=== PATIENT | female | born 1970 | race Hispanic/Latino ===

== ENCOUNTER 2016-11-22 11:17 | Emergency (ER) | payer MEDICAID ==
[2016-11-22 11:33] VITALS: BP 149/101
--- NOTE | 2016-11-25 19:09 | ED Elopement Review ---
ED Pt Elopement review - Call Back decision Pt Call Back Decision: Pt to F/U with PMD
== END 2016-11-22 12:30 | disposition left against medical advice (07) ==
LOC: ED 11:17
DX: R10.9 Unspecified abdominal pain (principal); Z53.21 Procedure and treatment not carried out due to patient leaving prior to being seen by health care provider

== ENCOUNTER 2017-04-17 14:31 | Emergency (ER) | payer MEDICAID ==
[2017-04-17 16:04] LABS: Anion Gap 21 mmol/L; Blood Urea Nitrogen 6 mg/dL (7-17); Calcium 9.5 mg/dL (8.4-10.2); Carbon Dioxide 28 mmol/L (22-30); Chloride 94.5 mmol/L (98-107); Glucose 107 mg/dL (65-100); Sodium 141 mmol/L (137-145)
[2017-04-17 16:07] LABS: Basophils % (Auto) 0.2 % (0.0-1.8); Hematocrit 51.4 % (30.3-42.9); Hemoglobin 17.3 gm/dl (10.1-14.3); Mean Corpuscular HGB Conc 34 % (30-34); Mean Corpuscular Hemoglobin 33 pg (28-32); Mean Corpuscular Volume 98 fl (79-97); Platelet Count 421 K/mm3 (140-440); Red Blood Count 5.24 M/mm3 (3.65-5.03); Red Cell Distribution Width 12.7 % (13.2-15.2); White Blood Count 15.7 K/mm3 (4.5-11.0)
[2017-04-17 16:10] LABS: Potassium 2.9 mmol/L (3.6-5.0)
[2017-04-17 16:12] LABS: INR 0.95 (0.87-1.13)
[2017-04-17 16:13] LABS: Partial Thromboplastin Time 27.5 Sec. (24.2-36.6)
[2017-04-17] MEDS ORDERED: MORPHINE IV ONE ×3 (16:29→22:56)
[2017-04-17] MEDS ORDERED: ZOFRAN IV ONE (16:29)
[2017-04-17] MEDS ORDERED: NACL 0.9% 1000 ML 1,000 ML IV ONE ×2 (16:29→20:08)
--- NOTE | 2017-04-17 16:34 | Emergency Department Report ---
ED Abdominal Pain HPI - General Chief Complaint: Headache Stated Complaint: HEADACHE Time Seen by Provider: 04/17/17 16:21 Source: patient, EMS Mode of arrival: Stretcher Limitations: No Limitations - History of Present Illness Initial Comments: Patient stated that her symptoms started yesterday with abdominal pain nausea vomiting and watery diarrhea. Started to have headache at that and mother stated that she had a history of brain aneurysm denied any weakness numbness or tingling sensation no fever MD Complaint: abdominal pain -: Last night Location: diffuse Severity: moderate Severity scale (0 -10): 5 Quality: cramping Improves With: vomiting Associated Symptoms: nausea, vomiting, diarrhea - Related Data Home Medications Medication Instructions Recorded Confirmed Last Taken ALPRAZolam [Xanax TAB] 2 mg PO BID 04/17/17 04/17/17 04/17/17 Ondansetron [Zofran TAB] 4 mg PO Q8H PRN 04/17/17 04/17/17 04/17/17 07:00 Oxycodone HCl/Acetaminophen 1 each PO QID 04/17/17 04/17/17 04/16/17 [Percocet 10/325 mg] fentaNYL [Fentanyl] 25 mcg TD Q3D 04/17/17 04/17/17 04/15/17 Previous Rx's Medication Instructions Recorded Last Taken Type Ciprofloxacin HCl [Ciprofloxacin 500 mg PO Q12H #14 tab 04/17/17 Unknown Rx TAB] Ketorolac [Toradol] 10 mg PO Q6H PRN #20 tablet 04/17/17 Unknown Rx Ondansetron [Zofran Odt] 4 mg PO Q4-6H PRN #14 tab.rapdis 04/17/17 Unknown Rx Allergies Allergy/AdvReac Type Severity Reaction Status Date / Time No Known Allergies Allergy Verified 01/19/15 18:47 ED Review of Systems ROS: Stated complaint: HEADACHE Other details as noted in HPI Constitutional: denies: chills, fever Respiratory: denies: cough, shortness of breath Cardiovascular: denies: chest pain, palpitations, syncope Gastrointestinal: abdominal pain, nausea, vomiting, diarrhea. denies: constipation, melena, hematochezia Genitourinary: denies: urgency, dysuria, frequency Skin: denies: rash Neurological: headache. denies: weakness, numbness, paresthesias, confusion, abnormal gait, vertigo ED Past Medical Hx - Past Medical History Additional medical history: Brain Aneurysm 2004 - Social History Smoking Status: Current Every Day Smoker Substance Use Type: None - Medications Home Medications: Home Medications Medication Instructions Recorded Confirmed Last Taken Type ALPRAZolam [Xanax TAB] 2 mg PO BID 04/17/17 04/17/17 04/17/17 History Ciprofloxacin HCl [Ciprofloxacin 500 mg PO Q12H #14 tab 04/17/17 Unknown Rx TAB] Ketorolac [Toradol] 10 mg PO Q6H PRN #20 tablet 04/17/17 Unknown Rx Ondansetron [Zofran Odt] 4 mg PO Q4-6H PRN #14 tab.rapdis 04/17/17 Unknown Rx Ondansetron [Zofran TAB] 4 mg PO Q8H PRN 04/17/17 04/17/17 04/17/17 07:00 History Oxycodone HCl/Acetaminophen 1 each PO QID 04/17/17 04/17/17 04/16/17 History [Percocet 10/325 mg] fentaNYL [Fentanyl] 25 mcg TD Q3D 04/17/17 04/17/17 04/15/17 History ED Physical Exam - General Limitations: No Limitations General appearance: alert, in no apparent distress - Head Head exam: Present: atraumatic, normocephalic, normal inspection - Eye Eye exam: Present: normal appearance, PERRL, EOMI Pupils: Present: normal accommodation - ENT ENT exam: Present: normal exam - Neck Neck exam: Present: normal inspection, full ROM. Absent: tenderness, meningismus, lymphadenopathy, thyromegaly - Respiratory Respiratory exam: Present: normal lung sounds bilaterally. Absent: respiratory distress, wheezes, rales, rhonchi - Cardiovascular Cardiovascular Exam: Present: regular rate, normal rhythm, normal heart sounds - GI/Abdominal GI/Abdominal exam: Present: soft, tenderness. Absent: distended, guarding, rebound, rigid, normal bowel sounds, organomegaly, bruit, pulsatile mass - Back Exam Back exam: Present: normal inspection - Neurological Exam Neurological exam: Present: alert, oriented X3, CN II-XII intact - Skin Skin exam: Present: warm, dry, intact ED Course Vital Signs 04/17/17 04/17/17 04/17/17 14:52 15:17 17:40 Temperature 98.8 F 98.5 F 98.7 F Pulse Rate 90 86 78 Respiratory 17 16 16 Rate Blood Pressure 150/88 158/89 153/92 [Right] O2 Sat by Pulse 98 96 96 Oximetry 04/17/17 04/17/17 04/17/17 18:24 19:14 19:20 Temperature 98.7 F Pulse Rate 66 76 Respiratory 16 18 18 Rate Blood Pressure 169/89 175/98 [Right] O2 Sat by Pulse 100 96 Oximetry - Reevaluation(s) Reevaluation #1: 04/17/17 20:39 The patient stated she is feeling much better no nausea no vomiting headache is gone, inform of a negative CT scan of the brain and abdomen and pelvis ED Medical Decision Making - Lab Data Result diagrams: 04/17/17 15:23 04/17/17 15:23 Critical care attestation.: If time is entered above; I have spent that time in minutes in the direct care of this critically ill patient, excluding procedure time. ED Disposition Clinical Impression: Headache, Abdominal pain, Nausea and vomiting in adult Disposition: DC-01 TO HOME OR SELFCARE Is pt being admited?: No Does the pt Need Aspirin: No Condition: Stable Instructions: Abdominal Pain (ED) Referrals: PRIMARY CARE, [Primary Care Provider] - 3-5 Days
[2017-04-17] MEDS ORDERED: ROCEPHIN/NS 1 GM/50 ML 1 GM/50 ML BAG IV ONE (16:50)
[2017-04-17 17:06] LABS: Alanine Aminotransferase 14 units/L (7-56); Albumin 4.4 g/dL (3.9-5); Albumin/Globulin Ratio 1.4 %; Alkaline Phosphatase 90 units/L (35-129); Total Protein 7.6 g/dL (6.3-8.2)
[2017-04-17 17:09] LABS: Bilirubin,Direct < 0.2 mg/dL (0-0.2); Bilirubin,Indirect 0.7 mg/dL
[2017-04-17 17:44] LABS: Bilirubin,Urine SM (Negative); Blood,Urine SM (Negative); Ketones,Urine 20 mg/dL (Negative); Leukocyte Esterase,Urine NEG (Negative); Mucus,Urine 3+ /HPF; Nitrite,Urine NEG (Negative); Urobilinogen,Urine < 2.0 mg/dL (<2.0)
--- NOTE | 2017-04-17 18:09 | Cat Scan Report ---
FINAL REPORT PROCEDURE: CT HEAD/BRAIN WO CON TECHNIQUE: Computerized tomography of the head was performed without contrast material. HISTORY: Headache COMPARISON: No prior studies are available for comparison. FINDINGS: Skull and scalp: Normal. Paranasal sinuses: Normal. Ventricles and subarachnoid spaces: Normal. Cerebrum: No evidence of hemorrhage, acute infarction or mass . Cerebellum and brainstem: No evidence of hemorrhage, acute infarction or mass. Vasculature: Normal. Comments: None. IMPRESSION: There is no evidence of an acute intracranial process
[2017-04-17] MEDS: KCL 10MEQ/100ML 10 MEQ/100 ML BAG IV SCH ×2 (18:25→20:48)
[2017-04-17] MEDS ORDERED: MORPHINE ONE (18:37)
[2017-04-17] MEDS ORDERED: NACL 0.9% 1000 ML 1,000 ML ONE (20:03)
--- NOTE | 2017-04-17 20:28 | Cat Scan Report ---
FINAL REPORT PROCEDURE: CT ABDOMEN PELVIS W CON TECHNIQUE: Computerized axial tomography of the abdomen and pelvis was performed after the IV injection of iodinated nonionic contrast. HISTORY: abdominal pain COMPARISON: No prior studies are available for comparison. FINDINGS: Visualized lower thorax: No significant abnormality. Liver: There is fatty infiltration of the liver. Spleen: Normal size and attenuation. Gallbladder and biliary system: Normal. Pancreas: Normal. Adrenals: There is a small 8 millimeter area of hypoattenuation in the right adrenal gland, small adenoma is suspected.. Kidneys: Kidneys have a normal size. No hydronephrosis. No renal stones or masses. GI tract: The stomach is normal. The small bowel has a normal caliber. No obstruction, ileus or enteritis. The cecum, appendix and colon are normal.. Lymph nodes and mesentery: Normal. Vasculature: Moderate atherosclerosis of the aorta and branching vessels.. Bladder: Normal. Reproductive organs: No pelvic masses. Peritoneum: No free fluid. Musculoskeletal structures: No significant abnormality. Other: None. IMPRESSION: There is no evidence of an intestinal or urinary tract obstruction. No ileus or enteritis. The appendix is normal. Small 8 millimeter right adrenal adenoma is suspected. Fatty infiltration of the liver.
[2017-04-17] MEDS ORDERED: TORADOL IV ONE (20:47)
[2017-04-17] MEDS ORDERED: REGLAN IV ONE (22:56)
[2017-04-17 23:42] VITALS: BP 163/83
== END 2017-04-17 23:18 | disposition home or self-care (01) ==
LOC: ED 14:31
DX: R10.9 Unspecified abdominal pain (principal); R11.2 Nausea with vomiting, unspecified; R51 Headache; F17.200 Nicotine dependence, unspecified, uncomplicated
CPT/HCPCS: 36415; 70450; 74177; 80048; 80074; 81001; 83690; 84703; 85025; 85610; 85730; 96365; 96366; 96367; 96375; 96376; 99285; J0696; J1885; J2270; J2405; J2765; J3480; J7030; Q9967

== ENCOUNTER 2017-10-13 11:59 | Emergency (ER) | payer MEDICAID ==
[2017-10-13 12:46] LABS: Hematocrit 49.8 % (30.3-42.9); Hemoglobin 16.6 gm/dl (10.1-14.3); Mean Corpuscular HGB Conc 33 % (30-34); Mean Corpuscular Hemoglobin 31 pg (28-32); Mean Corpuscular Volume 93 fl (79-97); Platelet Count 417 K/mm3 (140-440); Red Blood Count 5.37 M/mm3 (3.65-5.03); Red Cell Distribution Width 13.3 % (13.2-15.2)
[2017-10-13 12:58] LABS: Alanine Aminotransferase 6 units/L (7-56); Albumin 4.8 g/dL (3.9-5); BUN/Creatinine Ratio 28; Blood Urea Nitrogen 11 mg/dL (7-17); Calcium 10.3 mg/dL (8.4-10.2); Hemolysis Index 9
[2017-10-13 13:09] LABS: Bilirubin,Urine NEG (Negative); Blood,Urine NEG (Negative); Color,Urine Yellow (Yellow); Mucus,Urine 3+ /HPF; Nitrite,Urine NEG (Negative); Urobilinogen,Urine < 2.0 mg/dL (<2.0)
[2017-10-13 13:10] LABS: HCG Qualitative,Urine Negative (Negative)
[2017-10-13] MEDS ORDERED: NACL 0.9% 1000 ML 1,000 ML IV ONE ×2 (15:29→17:39)
[2017-10-13] MEDS ORDERED: ZOFRAN IV ONE (15:30)
[2017-10-13] MEDS ORDERED: MORPHINE IV ONE ×2 (15:30→16:46)
[2017-10-13 15:39] LABS: Total Cells Counted 200
[2017-10-13 15:40] LABS: Anisocytosis 1+; Band Neutrophils # (Manual) 0.6 K/mm3; Basophils % (Manual) 0 % (0.0-1.8); Eosinophils % (Manual) 0 % (0.0-4.3); Platelet Estimate Consistent w Auto
--- NOTE | 2017-10-13 15:40 | Emergency Department Report ---
Chief Complaint: Back Pain/Injury Stated Complaint: BACK PAIN Time Seen by Provider: 10/13/17 14:10 - HPI History of Present Illness: 47F PMH back pain, pancreatitis presents with complaint of acute onset of nausea vomiting and epigastric pain radiating to the back. Started yesterday. Patient is actively vomiting in in severe pain. Awake alert and oriented 3. - ROS Review of Systems: History of pancreatitis, 2 days of nausea and vomiting with abdominal pain - Exam Vital Signs: Vital Signs 10/13/17 12:12 Temperature 98.5 F Pulse Rate 100 H Respiratory 16 Rate Blood Pressure 137/86 O2 Sat by Pulse 97 Oximetry Physical Exam: Bilateral flank tenderness, epigastric tenderness and periumbilical tenderness MSE screening note: Focused history and physical exam performed. Due to findings the following was ordered: Screening Assessment/Plan/Differential Dx: Abdominal pain, possible pancreatitis 1- This initial assessment/diagnostic orders/clinical plan/ treatment(s) is/are subject to change based on pt's health status, clinical progression and re- assessment by fellow clinical providers in the ED. Further treatment and workup at subsequent clinical provers discretion. Patient/guardians urged not to elope from ED as their condition may be serious if not clinically assessed and managed. 2-markedly leukocytosis, clinical suspicion for possible pancreatitis although lipase is low H&H clinical symptoms and epigastric pain and has a history of recurrent pancreatitis 3-CT abdomen and pelvis with contrast, Zofran when necessary, IV analgesia when necessary, IV fluid 4-discussed with Dr. Collins, I will up triaged patient she could be septic secondary to suspected pancreatitis ED Medical Decision Making - Lab Data Result diagrams: 10/13/17 12:17 10/13/17 12:17 ED Disposition for MSE Condition: Stable Referrals: PRICE FERNANDEZ MD [Primary Care Provider] - 3-5 Days
--- NOTE | 2017-10-13 17:45 | Emergency Department Report ---
ED Abdominal Pain HPI - General Chief Complaint: Back Pain/Injury Stated Complaint: BACK PAIN Time Seen by Provider: 10/13/17 14:10 Source: patient, EMS Mode of arrival: Ambulatory Limitations: No Limitations - History of Present Illness Initial Comments: 47 yo female who comes in today due to abdominal/back pain. She states that it started on yesterday. She describes it as bilateral cva tenderness along with suprapubic tenderness. It's rated as 10/10, constant, aching/throbbing, with associated nausea. Admits to one episode of diarrhea. History of chronic pain. MD Complaint: abdominal pain, flank pain -: days(s) (one ) Location: suprapubic, L flank, R flank Radiation: none Migration to: no migration Severity scale (0 -10): 6 Quality: aching, sharp Consistency: constant Improves With: nothing Worsens With: movement Associated Symptoms: nausea, vomiting, diarrhea Treatments Prior to Arrival: other (zofran/pain meds ) - Related Data LMP (females 10-50): unknown Home Medications Medication Instructions Recorded Confirmed Last Taken ALPRAZolam [Xanax TAB] 2 mg PO TID 04/17/17 07/17/17 07/17/17 07:00 Oxycodone HCl/Acetaminophen 1 each PO QID 04/17/17 07/17/17 07/15/17 [Percocet 10/325 mg] fentaNYL [Fentanyl] 25 mcg TD Q3D 04/17/17 07/17/17 07/14/17 Promethazine [Phenergan SUPPOS] [address] Q6HR PRN 07/17/17 07/17/17 07/17/17 04: 00 Previous Rx's Medication Instructions Recorded Last Taken Type Nicotine [Habitrol] 21 mg TD DAILY #14 day 07/21/17 Unknown Rx Ondansetron [Zofran TAB] 8 mg PO Q8HR PRN #15 day 07/21/17 Unknown Rx Potassium Chloride [K-Dur] 20 meq PO QDAY #30 tablet 07/21/17 Unknown Rx Allergies Allergy/AdvReac Type Severity Reaction Status Date / Time No Known Allergies Allergy Verified 01/19/15 18:47 ED Review of Systems ROS: Stated complaint: BACK PAIN Other details as noted in HPI Constitutional: malaise, weakness Eyes: denies: eye pain, eye discharge, vision change ENT: denies: ear pain, throat pain Respiratory: denies: cough, shortness of breath, wheezing Cardiovascular: denies: chest pain, palpitations Endocrine: no symptoms reported Gastrointestinal: as per HPI, abdominal pain, nausea, vomiting, diarrhea Genitourinary: denies: urgency, dysuria, discharge Musculoskeletal: back pain Skin: other (resolving boil in the genital area ) Neurological: denies: headache, weakness, paresthesias Psychiatric: denies: anxiety, depression Hematological/Lymphatic: denies: easy bleeding, easy bruising ED Past Medical Hx - Past Medical History Previous Medical History?: Yes Additional medical history: Brain Aneurysm 2004,pancreatitis,chronic abd pain, Diverticulosis, Frequent kidney infections - Surgical History Past Surgical History?: No - Social History Smoking Status: Current Every Day Smoker Substance Use Type: Marijuana, Prescribed - Medications Home Medications: Home Medications Medication Instructions Recorded Confirmed Last Taken Type ALPRAZolam [Xanax TAB] 2 mg PO TID 04/17/17 07/17/17 07/17/17 07:00 History Oxycodone HCl/Acetaminophen 1 each PO QID 04/17/17 07/17/17 07/15/17 History [Percocet 10/325 mg] fentaNYL [Fentanyl] 25 mcg TD Q3D 04/17/17 07/17/17 07/14/17 History Promethazine [Phenergan SUPPOS] [address] Q6HR PRN 07/17/17 07/17/17 07/17/17 04: 00 History Nicotine [Habitrol] 21 mg TD DAILY #14 day 07/21/17 Unknown Rx Ondansetron [Zofran TAB] 8 mg PO Q8HR PRN #15 day 07/21/17 Unknown Rx Potassium Chloride [K-Dur] 20 meq PO QDAY #30 tablet 07/21/17 Unknown Rx ED Physical Exam - General Limitations: No Limitations General appearance: anxious - Head Head exam: Present: atraumatic, normocephalic - Eye Eye exam: Present: normal appearance - ENT ENT exam: Present: mucous membranes dry - Neck Neck exam: Present: normal inspection - Respiratory Respiratory exam: Present: normal lung sounds bilaterally. Absent: respiratory distress - Cardiovascular Cardiovascular Exam: Present: regular rate, normal rhythm. Absent: systolic murmur, diastolic murmur, rubs, gallop - GI/Abdominal GI/Abdominal exam: Present: tenderness (suprapubic/bilateral cva tenderness ) - Extremities Exam Extremities exam: Present: normal inspection - Back Exam Back exam: Present: CVA tenderness (R), CVA tenderness (L) - Neurological Exam Neurological exam: Present: alert, oriented X3 - Psychiatric Psychiatric exam: Present: normal affect, normal mood - Skin Skin exam: Present: warm, dry, intact, normal color. Absent: rash ED Course Vital Signs 10/13/17 10/13/17 10/13/17 12:12 16:23 16:53 Temperature 98.5 F Pulse Rate 100 H Respiratory 16 18 18 Rate Blood Pressure 137/86 Blood Pressure [Right] O2 Sat by Pulse 97 Oximetry 10/13/17 10/13/17 10/13/17 17:34 18:04 18:48 Temperature Pulse Rate Respiratory 18 18 18 Rate Blood Pressure Blood Pressure [Right] O2 Sat by Pulse Oximetry 10/13/17 18:58 Temperature 98.9 F Pulse Rate 65 Respiratory 18 Rate Blood Pressure Blood Pressure 180/95 [Right] O2 Sat by Pulse 99 Oximetry ED Medical Decision Making - Lab Data Result diagrams: 10/13/17 12:17 10/13/17 12:17 - Radiology Data Radiology results: report reviewed (CT abdomen/pelvis-colitis, right adrenal gland nodule ) - Medical Decision Making Chronic pain Colitis Abdominal pain Back pain Hypokalemia Hypomagnesemia Nausea/vomiting - Differential Diagnosis chronic pain, colitis, abdominal pain, back pain, hypokalemia, nausea/vomit Critical care attestation.: If time is entered above; I have spent that time in minutes in the direct care of this critically ill patient, excluding procedure time. ED Disposition Clinical Impression: Acute gastroenteritis, Hypokalemia, gastrointestinal losses, Chronic pain, Colitis, Hypomagnesemia Disposition: - TO HOME OR SELFCARE Is pt being admited?: No Does the pt Need Aspirin: No Condition: Stable Instructions: Gastroenteritis (ED), Acute Nausea and Vomiting (ED), Hypokalemia (ED), Hypomagnesemia (ED) Additional Instructions: May restart your medications on discharge. Remember to hydrate until better. Zofran odt prn nausea/vomiting. Referrals: PRICE FERNANDEZ MD [Primary Care Provider] - 3-5 Days Time of Disposition: 20:12
[2017-10-13] MEDS ORDERED: KCL 10MEQ/100ML 10 MEQ/100 ML BAG IV SCH (18:00)
[2017-10-13] MEDS ORDERED: KCL 40 MEQ in NACL 0.9% 500 ML 500 ML IV ONE (18:00)
--- NOTE | 2017-10-13 18:05 | Cat Scan Report ---
FINAL REPORT EXAM: CT ABDOMEN PELVIS W CON HISTORY: epigastric pain TECHNIQUE: Standard enhanced CT of the abdomen and pelvis. Coronal and sagittal reconstruction was also performed. Contrast: 100 mL Omnipaque 300 given IV. PRIORS: CT a/P 07/17/2017 FINDINGS: In the left upper quadrant, there is a short segment of concentric wall thickening in the splenic flexure of the colon with surrounding inflammation in the adjacent fat (axial image 53, coronal image 52). Findings are consistent with an inflammatory process including diverticulitis, colitis, and Crohn's disease. Neoplasm is not excluded. No evidence for localized perforation or abscess is seen. Within the abdomen, the liver again demonstrates focal fatty deposition along the anterior falciform ligament. The spleen, pancreas, gallbladder, left adrenal gland, and kidneys are unremarkable. There is stable 1.8 x 1.5 cm nodule in the right adrenal gland. No evidence for retroperitoneal or pelvic lymphadenopathy is seen. The bowel loops have normal caliber. No fluid collection or free air is seen within the abdomen or pelvis. The appendix is normal. Moderate calcification of the aorta is seen. Within the pelvis, the bladder is unremarkable. The uterus is normal but lies to the left of midline. No evidence for mass or lymphadenopathy is seen in the pelvis. Images through the upper abdomen include the lung bases which are expanded and clear. Bony structures show severe degenerative disc narrowing at L1 through L3 and L5-S1. IMPRESSION: 1. Concentric wall thickening and inflammation involving the splenic flexure of the colon. Differential includes inflammatory process such as diverticulitis, colitis, and Crohn's disease. Neoplasm is also included in the differential given the short segment of involvement. 2. Stable nodule in the right adrenal gland
[2017-10-13 19:00] VITALS: BP 180/95
[2017-10-13] MEDS ORDERED: MAGNESIUM SULFATE IV ONE (19:02)
[2017-10-13] MEDS ORDERED: REGLAN IV ONE (19:26)
[2017-10-13] MEDS ORDERED: MAGNESIUM SULFATE 2GM/50ML 0 GM/0 ML BAG IV ONE (19:38)
[2017-10-13] MEDS ORDERED: MAGNESIUM SULFATE 1 GM in NACL 0.9% 50 ML IV ONE (20:39)
== END 2017-10-13 21:29 | disposition home or self-care (01) ==
LOC: ED 11:59
DX: K52.9 Noninfective gastroenteritis and colitis, unspecified (principal); E87.6 Hypokalemia; G89.29 Other chronic pain; E83.42 Hypomagnesemia; K57.90 Diverticulosis of intestine, part unspecified, without perforation or abscess without bleeding; K85.90 Acute pancreatitis without necrosis or infection, unspecified; F17.200 Nicotine dependence, unspecified, uncomplicated; F12.10 Cannabis abuse, uncomplicated
CPT/HCPCS: 36415; 74177; 80053; 81001; 81025; 82140; 82550; 83690; 83735; 85007; 85025; 87040; 96361; 96365; 96367; 96375; 96376; 99284; J2270; J2405; J2765; J3475; J3480; J7030; J7040; Q9967

== ENCOUNTER 2017-12-27 13:33 | Emergency (ER) | payer MEDICAID | END 2017-12-27 14:30 | disposition left against medical advice (07) | LOC: ED 13:33 | DX: R10.9 Unspecified abdominal pain (principal); Z53.21 Procedure and treatment not carried out due to patient leaving prior to being seen by health care provider ==

== ENCOUNTER 2019-01-02 21:44 | Emergency (ER) | payer MEDICAID ==
--- NOTE | 2019-01-02 22:22 | Emergency Department Report ---
Blank Doc - Documentation Documentation: 48 y o female presents cc of trip and fall at home in her yard x 2 days ago cc of back pain pt has a hx of chronic back pain
[2019-01-02 22:23] VITALS: BP 124/87
[2019-01-02 23:09] LABS: Mean Corpuscular HGB Conc 36 % (30-34); Mean Corpuscular Volume 92 fl (79-97); Platelet Count 376 K/mm3 (140-440); Red Blood Count 4.67 M/mm3 (3.65-5.03); Red Cell Distribution Width 12.9 % (13.2-15.2)
[2019-01-02 23:19] LABS: Hematocrit 42.8 % (30.3-42.9); Hemoglobin 15.4 gm/dl (10.1-14.3)
[2019-01-02 23:24] LABS: BUN/Creatinine Ratio 14; Blood Urea Nitrogen 7 mg/dL (7-17); Calcium 9.7 mg/dL (8.4-10.2); Hemolysis Index 46
--- NOTE | 2019-01-03 00:03 | Cat Scan Report ---
PROCEDURE: CT LUMBAR SPINE WO CON TECHNIQUE: Computerized axial tomography of the lumbar spine was performed from T12 to the sacrum wi thout contrast material. CT DOSE LENGTH PRODUCT: mGycm HISTORY: back pain/injury COMPARISONS: None . FINDINGS: There is mild degree of dextroscoliosis. Vertebral height is normal.. Pre and para vertebral soft tis sues are within normal limits. Right adrenal demonstrates a hypodense nodule measuring 1.1 cm consist ent with adenoma. L1-2: Narrowing of the intervertebral disc spaces is noted with endplate sclerosis and marginal osteo phyte formation. Mild degree of diffuse disc bulge is noted without significant spinal canal or neura l foraminal compromise.. L2-3: Moderate degree diffuse disc bulge is noted without significant spinal canal or neural foramina l compromise. There is mild degree narrowing of the intervertebral disc space.. L3-4: Mild degree right facet arthropathy is noted without significant spinal canal or neural foramin al compromise. L4-5: No significant abnormality . L5-S1: Mild degree diffuse disc bulges noted without significant. There is mild degree right neural f oraminal stenosis secondary to mild degree of facet arthropathy superimposed on diffuse disc bulge.. . Other: An acute fracture is not identified . IMPRESSION: Multilevel lumbar spondylosis as described above No acute fracture Small right adrenal adenoma. This document is electronically signed by Ajay Fortune MD., January 03 2019 12:01:51 AM ET
[2019-01-03] MEDS ORDERED: ZOFRAN ODT PO ONE (00:11)
[2019-01-03] MEDS ORDERED: ZOFRAN ODT ONE (00:13)
[2019-01-03] MEDS ORDERED: REGLAN ONE (00:42)
[2019-01-03] MEDS ORDERED: TORADOL ONE (00:42)
[2019-01-03] MEDS ORDERED: NACL 0.9% 1000 ML 1,000 ML ONE (00:42)
[2019-01-03] MEDS ORDERED: NACL 0.9% 1000 ML 1,000 ML IV ONE (00:48)
[2019-01-03] MEDS ORDERED: REGLAN IV ONE (00:48)
[2019-01-03] MEDS ORDERED: TORADOL IV ONE (00:48)
[2019-01-03] MEDS ORDERED: NORCO 5/325 PO ONE ×2 (01:20→04:36)
[2019-01-03 02:25] LABS: Bilirubin,Urine NEG (Negative); Blood,Urine NEG (Negative); Color,Urine Yellow (Yellow); Mucus,Urine 3+ /HPF; Protein,Urine <15 mg/dL mg/dL (Negative)
[2019-01-03 02:26] LABS: WBC,Urine < 1.0 /HPF (0.0-6.0)
--- NOTE | 2019-01-03 03:37 | Emergency Department Report ---
ED Back Pain/Injury HPI - General Chief Complaint: Back Pain/Injury Stated Complaint: BACK PAIN X'S 2 DAYS Time Seen by Provider: 01/02/19 22:20 Source: patient, EMS Limitations: No Limitations - History of Present Illness Initial Comments: 48-year-old female with past history of chronic back pain, recurrent kidney infections, recurrent pancreatitis presents from department complaining of a back injury that was sustained 2 days ago. While in the ER, she tripped and fell, landing in an unknown fashion causing her low back pain. 2 retrigger. Pain is sharp and throbbing off and on range of motion. palpation and activities. reports some tingling sensation going to her right arm off and on. denies any loss of bowel, bladder, saddle paresthesia, any constipation, diarrh ea or urinary retention. MD Complaint: back pain Similar Symptoms Previously: Yes Place: home Severity: moderate Quality: sharp, dull Consistency: intermittent Worsens With: none Associated Symptoms: denies: confusion, weakness, chest pain, difficulty walking, fever/chills, constipation, headaches, loss of appetite, seizure, shortness of breath - Related Data Home Medications Medication Instructions Recorded Confirmed Last Taken ALPRAZolam [Xanax TAB] 2 mg PO TID 04/17/17 07/17/17 07/17/17 07:00 Oxycodone HCl/Acetaminophen 1 each PO QID 04/17/17 07/17/17 07/15/17 [Percocet 10/325 mg] fentaNYL [Fentanyl] 25 mcg TD Q3D 04/17/17 07/17/17 07/14/17 Promethazine [Phenergan SUPPOS] 25 mg WI Q6HR PRN 07/17/17 07/17/17 07/17/17 04:00 Previous Rx's Medication Instructions Recorded Last Taken Type Nicotine [Habitrol] 21 mg TD DAILY #14 day 07/21/17 Unknown Rx Ondansetron (Nf) [Zofran TAB] 8 mg PO Q8HR PRN #15 day 07/21/17 Unknown Rx Potassium Chloride [K-Dur] 20 meq PO QDAY #30 tablet 07/21/17 Unknown Rx Ketorolac [Toradol] 10 mg PO Q6H PRN #15 tablet 01/03/19 Unknown Rx Methocarbamol [Robaxin-750] 750 mg PO Q8H PRN #20 tablet 01/03/19 Unknown Rx Allergies Allergy/AdvReac Type Severity Reaction Status Date / Time No Known Allergies Allergy Verified 01/19/15 18:47 ED Review of Systems ROS: Stated complaint: BACK PAIN X'S 2 DAYS Other details as noted in HPI Constitutional: denies: chills, fever Eyes: denies: eye pain, eye discharge, vision change ENT: denies: ear pain, throat pain Respiratory: denies: cough, shortness of breath, wheezing Cardiovascular: denies: chest pain, palpitations Endocrine: no symptoms reported Gastrointestinal: denies: abdominal pain, nausea, diarrhea Genitourinary: denies: urgency, dysuria, discharge Musculoskeletal: back pain. denies: joint swelling, arthralgia Skin: denies: rash, lesions Neurological: denies: headache, weakness, paresthesias Psychiatric: denies: anxiety, depression Hematological/Lymphatic: denies: easy bleeding, easy bruising ED Past Medical Hx - Past Medical History Previous Medical History?: Yes Additional medical history: Brain Aneurysm 2004,pancreatitis,chronic abd pain, Diverticulosis, Frequent kidney infections chronic back pain - Surgical History Past Surgical History?: Yes - Social History Smoking Status: Current Every Day Smoker Substance Use Type: Alcohol, Marijuana - Medications Home Medications: Home Medications Medication Instructions Recorded Confirmed Last Taken Type ALPRAZolam [Xanax TAB] 2 mg PO TID 04/17/17 07/17/17 07/17/17 07:00 History Oxycodone HCl/Acetaminophen 1 each PO QID 04/17/17 07/17/17 07/15/17 History [Percocet 10/325 mg] fentaNYL [Fentanyl] 25 mcg TD Q3D 04/17/17 07/17/17 07/14/17 History Promethazine [Phenergan SUPPOS] 25 mg WI Q6HR PRN 07/17/17 07/17/17 07/17/17 04:00 History Nicotine [Habitrol] 21 mg TD DAILY #14 day 07/21/17 Unknown Rx Ondansetron (Nf) [Zofran TAB] 8 mg PO Q8HR PRN #15 day 07/21/17 Unknown Rx Potassium Chloride [K-Dur] 20 meq PO QDAY #30 tablet 07/21/17 Unknown Rx Ketorolac [Toradol] 10 mg PO Q6H PRN #15 tablet 01/03/19 Unknown Rx Methocarbamol [Robaxin-750] 750 mg PO Q8H PRN #20 tablet 01/03/19 Unknown Rx ED Physical Exam - General Limitations: No Limitations General appearance: alert, in no apparent distress - Head Head exam: Present: atraumatic, normocephalic - Eye Eye exam: Present: normal appearance, PERRL, EOMI - ENT ENT exam: Present: mucous membranes moist, other (plan) - Neck Neck exam: Present: normal inspection - Respiratory Respiratory exam: Present: normal lung sounds bilaterally. Absent: respiratory distress - Cardiovascular Cardiovascular Exam: Present: regular rate, normal rhythm. Absent: systolic murmur, diastolic murmur, rubs, gallop - GI/Abdominal GI/Abdominal exam: Present: soft, normal bowel sounds. Absent: tenderness, guarding - Extremities Exam Extremities exam: Present: normal inspection - Back Exam Back exam: Present: normal inspection, tenderness, paraspinal tenderness. Absent: CVA tenderness (R), CVA tenderness (L) - Neurological Exam Neurological exam: Present: alert, oriented X3, CN II-XII intact - Psychiatric Psychiatric exam: Present: normal affect, normal mood - Skin Skin exam: Present: warm, dry, intact, normal color. Absent: rash ED Course Vital Signs 01/02/19 22:20 Temperature 98.3 F Pulse Rate 91 H Respiratory 20 Rate Blood Pressure 124/87 O2 Sat by Pulse 99 Oximetry ED Medical Decision Making - Lab Data Result diagrams: 01/02/19 22:45 01/02/19 22:45 - Radiology Data Radiology results: report reviewed (Its some facet arthropathy and some disc bulging. No effacement.) Critical care attestation.: If time is entered above; I have spent that time in minutes in the direct care of this critically ill patient, excluding procedure time. ED Disposition Clinical Impression: Lumbago, Radicular low back pain Disposition: DC- TO HOME OR SELFCARE Is pt being admited?: No Does the pt Need Aspirin: No Condition: Stable Instructions: Lumbar Radiculopathy (ED), Low Back Strain (ED), Back Pain (ED), Arthralgia (ED) Referrals: ANDRIA WILLIS MD [Primary Care Provider] - 3-5 Days [facility] [Provider Group] - 3-5 Days
[2019-01-03] MEDS ORDERED: NORCO 5/325 ONE (04:36)
== END 2019-01-03 04:40 | disposition home or self-care (01) ==
LOC: ED 21:44
DX: G89.29 Other chronic pain (principal); M54.5 Low back pain; F17.200 Nicotine dependence, unspecified, uncomplicated; F12.90 Cannabis use, unspecified, uncomplicated
CPT/HCPCS: 36415; 72131; 80048; 81001; 85027; 85379; 96374; 96375; 99284; J1885; J2765; J7030; 96361; Q0162

== ENCOUNTER 2019-04-15 16:01 | Emergency (ER) | payer MEDICAID ==
[2019-04-15] MEDS ORDERED: SUBLIMAZE IV ONE (16:59)
[2019-04-15] MEDS ORDERED: ZOFRAN IV ONE (16:59)
[2019-04-15] MEDS ORDERED: BOOSTRIX IM ONE (17:02)
--- NOTE | 2019-04-15 17:05 | Emergency Department Report ---
HPI - General Chief Complaint: Fall Time Seen by Provider: 04/15/19 16:55 - HPI HPI: Room 18 The patient is a 48-year-old female presenting with chief complaint of pain after fall. The patient states she tripped over a football and landed on her right side on concrete. Patient denies loss of consciousness. Patient complains of pain in her lower back, right hip and right ankle. Patient gives her pain a score of 10/10 ED Past Medical Hx - Past Medical History Previous Medical History?: Yes Additional medical history: Brain Aneurysm 2004,pancreatitis,chronic abd pain, Diverticulosis, Frequent kidney infections chronic back pain - Surgical History Past Surgical History?: No - Family History Family history: no significant - Social History Smoking Status: Current Every Day Smoker (1/2 pack per day) Substance Use Type: Marijuana - Medications Home Medications: Home Medications Medication Instructions Recorded Confirmed Last Taken Type ALPRAZolam [Xanax TAB] 2 mg PO TID 04/17/17 07/17/17 07/17/17 07:00 History Oxycodone HCl/Acetaminophen 1 each PO QID 04/17/17 07/17/17 07/15/17 History [Percocet 10/325 mg] fentaNYL [Fentanyl] 25 mcg TD Q3D 04/17/17 07/17/17 07/14/17 History Promethazine [Phenergan SUPPOS] 25 mg ND Q6HR PRN 07/17/17 07/17/17 07/17/17 04:00 History Nicotine [Habitrol] 21 mg TD DAILY #14 day 07/21/17 Unknown Rx Ondansetron (Nf) [Zofran TAB] 8 mg PO Q8HR PRN #15 day 07/21/17 Unknown Rx Potassium Chloride [K-Dur] 20 meq PO QDAY #30 tablet 07/21/17 Unknown Rx Ketorolac [Toradol] 10 mg PO Q6H PRN #15 tablet 01/03/19 Unknown Rx Methocarbamol [Robaxin-750] 750 mg PO Q8H PRN #20 tablet 01/03/19 Unknown Rx ED Review of Systems ROS: Stated complaint: ANKLE/HIP PAIN DUE TO FALL Other details as noted in HPI Constitutional: no symptoms reported Eyes: denies: eye pain ENT: denies: throat pain Respiratory: no symptoms reported Cardiovascular: denies: chest pain Endocrine: no symptoms reported Gastrointestinal: denies: abdominal pain Genitourinary: denies: dysuria Musculoskeletal: back pain, arthralgia, myalgia Skin: other (abrasion right ankle) Neurological: denies: headache Physical Exam - Physical Exam Vital Signs: Vital Signs 04/15/19 16:42 Temperature 97.9 F Pulse Rate 91 H Respiratory 16 Rate Blood Pressure 133/85 O2 Sat by Pulse 99 Oximetry Physical Exam: GENERAL: The patient is well-developed well-nourished female lying on stretcher. Be in moderate discomfort. [] HEENT: Normocephalic. Atraumatic. Extraocular motions are intact. Patient has moist mucous membranes. NECK: Supple. Trachea midline CHEST/LUNGS: Clear to auscultation. There is no respiratory distress noted. HEART/CARDIOVASCULAR: Regular. There is no tachycardia. 2+ right DP ABDOMEN: Abdomen is soft, nontender. Patient has normal bowel sounds. There is no abdominal distention. SKIN: There is an abrasion to the lateral aspect of the right ankle. There is no diaphoresis. NEURO: The patient is awake, alert, and oriented. The patient is cooperative. The patient has no focal neurologic deficits. The patient has normal speech MUSCULOSKELETAL: There is tenderness to palpation of the right hip, right ankle and right foot ED Course Vital Signs 04/15/19 16:42 Temperature 97.9 F Pulse Rate 91 H Respiratory 16 Rate Blood Pressure 133/85 O2 Sat by Pulse 99 Oximetry ED Medical Decision Making - Radiology Data Radiology results: report reviewed (lumbar spine x-ray, right hip x-ray, right ankle x-ray, right foot x-ray), image reviewed (lumbar spine x-ray, right hip x- ray, right ankle x-ray, right foot x-ray) interpreted by me: Lumbar spine x-ray-no acute fracture Right hip x-ray-no acute fracture Right foot x-ray-no acute fracture [facility] [address] [place] [address] XRay Report Signed Patient: DARWIN BOWERS MR#: [id number] : 1970 Acct:[id number] Age/Sex: 48 / F ADM Date: 04/15/19 Loc: ED Attending Dr: Ordering Physician: JEAN DUEÑAS MD Date of Service: 04/15/19 Procedure(s): XR spine lumbosacral 2-3V Accession Number(s): [id number] cc: JEAN DUEÑAS MD Fluoro Time In Minutes: LUMBAR SPINE 3 VIEWS INDICATION / CLINICAL INFORMATION: pain after fall. COMPARISON: None available. FINDINGS: VERTEBRAE: No fracture. Mild scoliosis of lumbar spine with convexity towards right centered at L2. DISC SPACES:Moderate discogenic degenerative disease L1-2 and L5-S1. Mild discogenic degenerative disease L2-3. FACET JOINTS:No significant abnormality. ADDITIONAL FINDINGS: None. IMPRESSION: 1. Discogenic degenerative disease of lumbar spine. Signer Name: Brenden Gao MD Signed: 04/15/2019 6:04 PM Workstation Name: [id number] Transcribed By: TL Dictated By: Brenden Gao MD Electronically Authenticated By: Brenden Gao MD Signed Date/Time: 04/15/191803 DD/ 02 TD/TT: [address] [address] XRay Report Signed Patient: DARWIN BOWERS MR#: [id number] : 1970 Acct:[id number] Age/Sex: 48 / F ADM Date: 04/15/19 Loc: ED Attending Dr: Ordering Physician: JEAN DUEÑAS MD Date of Service: 04/15/19 Procedure(s): XR hip 2-3V RT Accession Number(s): [id number] cc: JEAN DUEÑAS MD Fluoro Time In Minutes: RIGHT HIP 2 VIEWS INDICATION / CLINICAL INFORMATION: Fall onto concrete with right hip pain. COMPARISON: None available. FINDINGS: BONES / JOINT(S): The hip and SI joint spaces are well-maintained. There is no evidence of fracture or dislocation. SOFT TISSUES: No significant abnormality. ADDITIONAL FINDINGS: None. IMPRESSION: No acute abnormality. Signer Name: Clyde Byrd MD Signed: 04/15/2019 5:55 PM Workstation Name: [id number] Transcribed By: RT Dictated By: Clyde Byrd MD Electronically Authenticated By: Clyde Byrd MD Signed Date/Time: 04/15/191754 DD/ 54 TD/TT: [facility] [address] [address] XRay Report Signed Patient: DARWIN BOWERS MR#: [id number] : 1970 Acct:[id number] Age/Sex: 48 / F ADM Date: 04/15/19 Loc: ED Attending Dr: Ordering Physician: JEAN DUEÑAS MD Date of Service: 04/15/19 Procedure(s): XR foot 2V RT Accession Number(s): [id number] cc: JEAN DUEÑAS MD Fluoro Time In Minutes: RIGHT FOOT 4 VIEWS INDICATION / CLINICAL INFORMATION: pain after fall. COMPARISON: None available. FINDINGS: No acute fracture, dislocation or soft tissue swelling is seen within the right foot. Moderate degenerative arthrosis is seen within the first toe IP and MTP joints. There is an old healed fracture deformity involving the fifth metatarsal shaft. Signer Name: Brenden Gao MD Signed: 04/15/2019 6:02 PM Workstation Name: [id number] Transcribed By: TL Dictated By: Brenden Gao MD Electronically Authenticated By: Brenden Gao MD Signed Date/Time: 04/15/191801 DD/ 01 TD/TT: [address] [address] XRay Report Signed Patient: DARWIN BOWERS MR#: [id number] : 1970 Acct:[id number] Age/Sex: 48 / F ADM Date: 04/15/19 Loc: ED Attending Dr: Ordering Physician: JEAN DUEÑAS MD Date of Service: 04/15/19 Procedure(s): XR ankle 2V RT Accession Number(s): [id number] cc: JEAN DUEÑAS MD Fluoro Time In Minutes: RIGHT ANKLE 3 VIEWS INDICATION / CLINICAL INFORMATION: Fall onto concrete with right ankle pain. COMPARISON: None available. FINDINGS: BONES / JOINT(S): No acute fracture or subluxation. No significant arthritis. SOFT TISSUES: No significant abnormality. ADDITIONAL FINDINGS: None. IMPRESSION: No acute abnormality. Signer Name: Clyde Byrd MD Signed: 04/15/2019 5:55 PM Workstation Name: [id number] Transcribed By: RT Dictated By: Clyde Byrd MD Electronically Authenticated By: Clyde Byrd MD Signed Date/Time: 04/15/191754 DD/ 53 TD/TT: - Medical Decision Making Per [place] prescription monitoring the patient had a prescription for Percocet 10/325 #150, fentanyl patch #10 and Xanax 1 mg #90 written 04/11/2019. Subsequently no narcotic pain medication prescription will be given today - Differential Diagnosis hip contusion, hip fracture, ankle sprain, ankle fracture Critical care attestation.: If time is entered above; I have spent that time in minutes in the direct care of this critically ill patient, excluding procedure time. ED Disposition Clinical Impression: Contusion of right hip, Right ankle sprain, Abrasion of right ankle Disposition: DC-01 TO HOME OR SELFCARE Is pt being admited?: No Does the pt Need Aspirin: No Condition: Stable Additional Instructions: Return to the emergency department immediately should you develop worsening symptoms, fever, inability to tolerate food or liquid or any other concerns. Referrals: CLYED MARIA MD [Staff Physician] - 3-5 Days (Dr. Maria is an orthopedic surgeon. Please follow up with him for further evaluation) Time of Disposition: 18:40
--- NOTE | 2019-04-15 17:59 | XRay Report ---
RIGHT ANKLE 3 VIEWS INDICATION / CLINICAL INFORMATION: Fall onto concrete with right ankle pain. COMPARISON: None available. FINDINGS: BONES / JOINT(S): No acute fracture or subluxation. No significant arthritis. SOFT TISSUES: No significant abnormality. ADDITIONAL FINDINGS: None. IMPRESSION: No acute abnormality. Signer Name: Julio Byrd MD Signed: 04/15/2019 5:55 PM Workstation Name: [id number]
--- NOTE | 2019-04-15 18:00 | XRay Report ---
RIGHT HIP 2 VIEWS INDICATION / CLINICAL INFORMATION: Fall onto concrete with right hip pain. COMPARISON: None available. FINDINGS: BONES / JOINT(S): The hip and SI joint spaces are well-maintained. There is no evidence of fracture o r dislocation. SOFT TISSUES: No significant abnormality. ADDITIONAL FINDINGS: None. IMPRESSION: No acute abnormality. Signer Name: Julio Byrd MD Signed: 04/15/2019 5:55 PM Workstation Name: [id number]
--- NOTE | 2019-04-15 18:07 | XRay Report ---
RIGHT FOOT 4 VIEWS INDICATION / CLINICAL INFORMATION: pain after fall. COMPARISON: None available. FINDINGS: No acute fracture, dislocation or soft tissue swelling is seen within the right foot. Moderate degene rative arthrosis is seen within the first toe IP and MTP joints. There is an old healed fracture defo rmity involving the fifth metatarsal shaft. Signer Name: Brenden Gao MD Signed: 04/15/2019 6:02 PM Workstation Name: [id number]
--- NOTE | 2019-04-15 18:08 | XRay Report ---
LUMBAR SPINE 3 VIEWS INDICATION / CLINICAL INFORMATION: pain after fall. COMPARISON: None available. FINDINGS: VERTEBRAE: No fracture. Mild scoliosis of lumbar spine with convexity towards right centered at L2. DISC SPACES:Moderate discogenic degenerative disease L1-2 and L5-S1. Mild discogenic degenerative dis ease L2-3. FACET JOINTS:No significant abnormality. ADDITIONAL FINDINGS: None. IMPRESSION: 1. Discogenic degenerative disease of lumbar spine. Signer Name: Brenden Gao MD Signed: 04/15/2019 6:04 PM Workstation Name: [id number]
[2019-04-15 18:32] VITALS: BP 118/76
== END 2019-04-15 18:58 | disposition home or self-care (01) ==
LOC: ED 16:01
DX: S93.401A Sprain of unspecified ligament of right ankle, initial encounter (principal); S70.01XA Contusion of right hip, initial encounter; M54.5 Low back pain; G89.29 Other chronic pain; F17.210 Nicotine dependence, cigarettes, uncomplicated; F12.90 Cannabis use, unspecified, uncomplicated; Z79.899 Other long term (current) drug therapy; W01.0XXA Fall on same level from slipping, tripping and stumbling without subsequent striking against object, initial encounter; Y93.61 Activity, american tackle football; Y92.89 Other specified places as the place of occurrence of the external cause; Y99.8 Other external cause status
CPT/HCPCS: 72100; 73502; 73600; 73620; 90471; 90715; 96374; 96375; 99283; J2405; J3010

== ENCOUNTER 2019-08-19 06:16 | Emergency (ER) | payer MEDICAID ==
[2019-08-19] MEDS ORDERED: ONDANSETRON 4 MG/2 ML INJ IV ONE (06:47)
[2019-08-19] MEDS ORDERED: HYDROmorphone 1 MG/1 ML INJ IV ONE ×2 (06:47→09:13)
[2019-08-19] MEDS ORDERED: SODIUM CHLORIDE 0.9% 1000 ML 1,000 ML IV ONE (06:47)
--- NOTE | 2019-08-19 06:57 | Emergency Department Report ---
ED General Adult HPI - General Chief complaint: Abdominal Pain Stated complaint: ABDOMINAL PAIN Time Seen by Provider: 08/19/19 06:29 Source: patient, EMS ( EMS documentation not available at time of chart dictation ), RN notes reviewed Mode of arrival: Stretcher Limitations: Physical Limitation - History of Present Illness Initial comments: Primary care physician, Dr. Ar De Jesus This is a 49-year-old female. She has a history of chronic narcotic use, question pancreatitis. She presents to the ER with complaint of nontraumatic sudden diffuse abdominal pain, that started at 1:00 in the morning. She indicates the pain is constant, does not radiate anywhere, increases with palpation and decreases with lying on her side. She makes no complaint of headache, neck pain, chest pain, fever, urinary symptoms. She describes multiple episodes of nausea and vomiting. She's not sure if she is having diarrhea. She makes no complaint of urinary symptoms. She's not sure color her emesis is. She is not certain if she's had pain like this in the past. -: Gradual Location: abdomen Severity scale (0 -10): 10 Quality: other Consistency: other Improves with: other - Related Data Previous Rx's Medication Instructions Recorded Last Taken Type Nicotine [Habitrol] 21 mg TD DAILY #14 day 07/21/17 Unknown Rx Potassium Chloride [K-Dur] 20 meq PO QDAY #30 tablet 07/21/17 Unknown Rx Ketorolac [Toradol] 10 mg PO Q6H PRN #15 tablet 01/03/19 Unknown Rx Ondansetron (Nf) [Zofran TAB] 8 mg PO Q8HR PRN #15 day 08/19/19 Unknown Rx Polyethylene Glycol 3350 [Miralax 17 gm PO Q48HR #30 powd.pack 08/19/19 Unknown Rx 3350] Promethazine [Phenergan SUPPOS] 25 mg OR Q6HR PRN #15 08/19/19 Unknown Rx Allergies Allergy/AdvReac Type Severity Reaction Status Date / Time No Known Allergies Allergy Verified 01/19/15 18:47 ED Review of Systems ROS: Stated complaint: ABDOMINAL PAIN Other details as noted in HPI Constitutional: malaise Eyes: denies: eye discharge ENT: denies: congestion Respiratory: denies: wheezing Cardiovascular: denies: syncope Gastrointestinal: abdominal pain, nausea, vomiting Musculoskeletal: denies: back pain Neurological: weakness Psychiatric: anxiety Hematological/Lymphatic: denies: easy bleeding ED Past Medical Hx - Past Medical History Previous Medical History?: Yes Additional medical history: Brain Aneurysm 2004,pancreatitis,chronic abd pain, Diverticulosis, Frequent kidney infections chronic back pain - Social History Smoking Status: Current Every Day Smoker Substance Use Type: Prescribed - Medications Home Medications: Home Medications Medication Instructions Recorded Confirmed Last Taken Type Nicotine [Habitrol] 21 mg TD DAILY #14 day 07/21/17 Unknown Rx Potassium Chloride [K-Dur] 20 meq PO QDAY #30 tablet 07/21/17 Unknown Rx Ketorolac [Toradol] 10 mg PO Q6H PRN #15 tablet 01/03/19 Unknown Rx Ondansetron (Nf) [Zofran TAB] 8 mg PO Q8HR PRN #15 day 08/19/19 Unknown Rx Polyethylene Glycol 3350 [Miralax 17 gm PO Q48HR #30 powd.pack 08/19/19 Unknown Rx 3350] Promethazine [Phenergan SUPPOS] 25 mg OR Q6HR PRN #15 08/19/19 Unknown Rx ED Physical Exam - General Limitations: Physical Limitation General appearance: alert, in distress - Head Head exam: Present: atraumatic, normocephalic - Eye Eye exam: Present: normal appearance - ENT ENT exam: Present: mucous membranes dry, normal external ear exam - Neck Neck exam: Present: normal inspection, full ROM. Absent: tenderness, meningismus - Respiratory Respiratory exam: Present: normal lung sounds bilaterally. Absent: respiratory distress - Cardiovascular Cardiovascular Exam: Present: regular rate, normal rhythm, normal heart sounds. Absent: bradycardia, tachycardia, irregular rhythm, systolic murmur, diastolic murmur, rubs, gallop - GI/Abdominal GI/Abdominal exam: Present: soft, tenderness. Absent: distended, guarding, rebound, rigid, pulsatile mass - Extremities Exam Extremities exam: Present: normal inspection, full ROM, other (2+ pulses noted in the bilateral upper, lower extremities. There is no long bone tenderness. Musculoskeletal compartments are soft. The pelvis is stable.). Absent: pedal edema, joint swelling, calf tenderness - Back Exam Back exam: Present: normal inspection, full ROM. Absent: tenderness, CVA tenderness (R), CVA tenderness (L), paraspinal tenderness, vertebral tenderness - Neurological Exam Neurological exam: Present: alert, other (there is no facial droop. The tongue is midline. Extraocular movements are intact bilaterally. There is 5/5 strength bilateral upper, lower extremities, and sensation is intact to light touch in 4 extremities.) - Psychiatric Psychiatric exam: Present: anxious - Skin Skin exam: Present: warm, dry, intact, normal color. Absent: rash ED Course Vital Signs 08/19/19 08/19/19 08/19/19 06:25 07:00 07:15 Temperature 97.9 F Pulse Rate 80 Respiratory 20 Rate Blood Pressure 135/83 137/80 153/91 O2 Sat by Pulse 100 100 97 Oximetry 08/19/19 08/19/19 08/19/19 07:30 07:45 08:00 Temperature Pulse Rate Respiratory Rate Blood Pressure 154/90 154/93 145/88 O2 Sat by Pulse 99 99 100 Oximetry 08/19/19 08:23 Temperature 98.4 F Pulse Rate Respiratory Rate Blood Pressure O2 Sat by Pulse Oximetry - Reevaluation(s) Reevaluation #1: 08/19/19 06:52 ga pipeline technician aware Summary Total Prescriptions 39 Total Private Pay 0 Total Prescribers 1 Total Pharmacies 1 Opioids* (excluding buprenorphine) Current Qty 47.67 Current MME/day 180.0 30 Day Avg MME/day 192.0 Buprenorphine* Current Qty 0.0 Current mg/day 0.0 30 Day Avg mg/day 0.0 Prescriptions Filled ID Written Drug QTY Days Prescriber Rx # Pharmacy * Refills Daily Dose Pymt Type [facility] 08/01/2019 1 07/30/2019 OXYCODONE-ACETAMINOPHEN 10-325 120.0 30 [facility] [id number] [facility] ([id number]) 0 60.0 [place] 08/01/2019 1 07/30/2019 FENTANYL 50 MCG/HR PATCH 10.0 30 [facility] [id number] [facility] ([id number]) 0 120.0 [place] 08/01/2019 1 07/04/2019 ALPRAZOLAM 2 MG TABLET 90.0 30 [facility] [id number] [facility] ([id number]) 0 [place] 07/04/2019 1 07/04/2019 OXYCODONE-ACETAMINOPHEN 10-325 120.0 30 [facility] [id number] [facility] ([id number]) 0 60.0 [place] 07/04/2019 1 07/04/2019 FENTANYL 50 MCG/HR PATCH 10.0 30 [facility] [id number] [facility] ([id number]) 0 120.0 [place] 07/04/2019 1 05/09/2019 ALPRAZOLAM 2 MG TABLET 90.0 30 [facility] [id number] [facility] ([id number]) 2 [place] 06/06/2019 1 05/09/2019 OXYCODONE-ACETAMINOPHEN 10-325 150.0 30 [facility] [id number] [facility] ([id number]) 0 75.0 [place] 06/06/2019 1 05/09/2019 FENTANYL 50 MCG/HR PATCH 10.0 30 [facility] [id number] [facility] ([id number]) 0 120.0 [place] 06/06/2019 1 05/09/2019 ALPRAZOLAM 2 MG TABLET 90.0 30 [facility] [id number] [facility] ([id number]) 1 Medicaid [place] 05/09/2019 1 05/09/2019 OXYCODONE-ACETAMINOPHEN 10-325 150.0 30 [facility] [id number] [facility] ([id number]) 0 75.0 MME [place] 05/09/2019 1 05/09/2019 FENTANYL 50 MCG/HR PATCH 10.0 30 [facility] [id number] [facility] ([id number]) 0 120.0 [place]ME [place] 05/09/2019 1 05/09/2019 ALPRAZOLAM 2 MG TABLET 90.0 30 [facility] J[facility]TT [id number] [facility] ([id number]) 0 Medicaid [place] 04/11/2019 1 04/11/2019 OXYCODONE-ACETAMINOPHEN 10-325 150.0 30 [facility]TT [id number] [facility] ([id number]) 0 75.0 MME [place] 04/11/2019 1 04/11/2019 FENTANYL 50 MCG/HR PATCH 10.0 30 [facility] J[facility] [id number] [facility] ([id number]) 0 120.0 [place] 04/11/2019 1 04/11/2019 ALPRAZOLAM 1 MG TABLET 90.0 30 [facility] J[facility]TT [id number] [facility] ([id number]) 0 [place] 03/14/2019 1 03/14/2019 OXYCODONE-ACETAMINOPHEN 10-325 150.0 30 [facility] J[facility]TT [id number] [facility] ([id number]) 0 75.0 [place]ME [place] 03/14/2019 1 03/14/2019 FENTANYL 50 MCG/HR PATCH 10.0 30 [facility]TT [id number] [facility] ([id number]) 0 120.0 MME Medicaid [place] 03/13/2019 1 11/22/2018 ALPRAZOLAM 1 MG TABLET 90.0 30 [facility] [id number] [facility] ([id number]) 2 Medicaid [place] 02/14/2019 1 02/14/2019 OXYCODONE-ACETAMINOPHEN 10-325 150.0 30 [facility]TT [id number] [facility] ([id number]) 0 75.0 [place] 02/14/2019 1 02/14/2019 FENTANYL 50 MCG/HR PATCH 10.0 30 [facility] [id number] [facility] ([id number]) 0 120.0 MME [place] 02/13/2019 1 11/22/2018 ALPRAZOLAM 1 MG TABLET 90.0 30 [facility]TT [id number] [facility] ([id number]) 1 [place] 01/17/2019 1 01/17/2019 OXYCODONE-ACETAMINOPHEN 10-325 150.0 30 [facility] J[facility]TT [id number] [facility] ([id number]) 0 75.0 MME [place] 01/17/2019 1 01/17/2019 FENTANYL 50 MCG/HR PATCH 10.0 30 [facility] J[facility]TT [id number] [facility] ([id number]) 0 120.0 [place] 01/13/2019 1 11/22/2018 ALPRAZOLAM 1 MG TABLET 90.0 30 [facility]TT [id number] [facility] ([id number]) 0 [place] 12/19/2018 1 11/22/2018 OXYCODONE-ACETAMINOPHEN 10-325 150.0 30 [facility] J[facility]TT [id number] [facility] ([id number]) 0 75.0 [place] 12/19/2018 1 11/22/2018 FENTANYL 50 MCG/HR PATCH 10.0 30 [facility] J[facility]TT [id number] [facility] ([id number]) 0 120.0 [place] 12/14/2018 1 09/27/2018 ALPRAZOLAM 1 MG TABLET 90.0 30 [facility] J[facility]TT [id number] [facility] ([id number]) 1 [place] 11/22/2018 1 11/22/2018 OXYCODONE-ACETAMINOPHEN 10-325 150.0 30 [facility] J[facility]TT [id number] [facility] ([id number]) 0 75.0 MME [place] 11/22/2018 1 11/22/2018 FENTANYL 50 MCG/HR PATCH 10.0 30 [facility] [id number] [facility] ([id number]) 0 120.0 [place]ME [place] 11/16/2018 1 09/27/2018 ALPRAZOLAM 1 MG TABLET 90.0 30 [facility] [id number] [facility] ([id number]) 0 [place] 10/25/2018 1 09/27/2018 OXYCODONE-ACETAMINOPHEN 10-325 150.0 30 [facility] J[facility]TT [id number] [facility] ([id number]) 0 75.0 [place]ME [place] 10/25/2018 1 09/27/2018 FENTANYL 50 MCG/HR PATCH 10.0 30 [facility] J[facility]TT [id number] [facility] ([id number]) 0 120.0 [place] 10/19/2018 1 07/17/2018 ALPRAZOLAM 1 MG TABLET 90.0 30 [facility] J[facility]TT [id number] [facility] ([id number]) 2 Medicaid Reevaluation #2: 08/19/19 07:00 Differential diagnosis, including not limited to: Ischemic gut, obstruction, constipation, colitis, diverticulitis, pancreatitis, urinary tract infection, cyclic vomiting syndrome, narcotic bowel syndrome Assessment and plan: 49-year-old female with diffuse abdominal pain, who is otherwise afebrile with reassuring vital signs, has equal pulses in upper and lower extremities, on chronic narcotic therapy. 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 We will check screening laboratory studies, EKG, urinalysis, CT angiogram abdomen pelvis. Reevaluation #3: 08/19/19 07:40 Patient is now sleeping in her stretcher. No active vomiting. Lactic acid within normal limits. This is unlikely to be an emergent surgical condition. Reevaluation #4: 08/19/19 09:15 Patient now complaining of abdominal pain again. She would not clinic CAT scan until additional pain medication was ordered. We have ordered additional hydromorphone for pain control. Reevaluation #5: 08/19/19 11:21 No active vomiting at this time. CT scan shows no emergent condition. Constipation suggested, incidental nonemergent peripheral artery disease noted. 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 The patient will need to follow-up with her outpatient primary care doctor to for narcotic de-escalation therapy. She can follow-up with an outpatient primary care doctor or vascular surgeon for incidental nonemergent peripheral artery disease. ED Medical Decision Making - Lab Data Result diagrams: 08/19/19 06:46 08/19/19 06:46 Vital Signs 08/19/19 06:25 Temperature 97.9 F Pulse Rate 80 Respiratory 20 Rate Blood Pressure 135/83 O2 Sat by Pulse 100 Oximetry - EKG Data -: EKG Interpreted by Pa EKG shows normal: sinus rhythm Rate: normal - EKG Data 08/19/19 07:11 The EKG has some motion artifact. It shows a sinus rhythm, 84 bpm, normal axis, the QTC is 477 ms, there is left ventricular hypertrophy, there is motion artifact. There is poor R-wave progression. The EKG appears to be unchanged from prior EKG from 08/22/2018. The EKG is not consistent with a STEMI - Radiology Data Radiology results: pending, report reviewed, image reviewed CTA ABDOMEN AND PELVIS HISTORY: Diffuse abdominal pain out of proportion to exam COMPARISON: CT abdomen pelvis without contrast dated 08/22/2018 TECHNIQUE: Noncontrast CT abdomen obtained. Routine postcontrast CT angiography of the abdomen and pelvis performed. Multiplanar/MIP/3D reformats were post- processed. All CT scans at this location are performed using CT dose reduction for ALARA by means of automated exposure control. CONTRAST: 100 ml of Omnipaque 350 FINDINGS: CTA ABDOMEN: Abdominal Aorta: Mild partially calcified plaques are identified distally. No stenosis, aneurysm or dissection. Celiac Artery: No significant abnormality. Superior Mesenteric Artery: No significant abnormality. Renal Arteries: Right: No significant abnormality. Le Right: No significant abnormality. Left: No significant abnormality. Inferior Mesenteric Artery: No significant abnormality. CTA PELVIS: RIGHT: Common Iliac Artery: Moderate calcified plaques with 50-60% stenosis. Internal Iliac Artery: Mild calcified plaques but no hemodynamically significant stenosis. External Iliac Artery: No significant abnormality. LEFT: Common Iliac Artery: Moderate calcific plaques with 50-60% stenosis distally. Internal Iliac Artery: Mild calcified plaques but no hemodynamically significant stenosis. External Iliac Artery: No significant abnormality. NONTARGET STRUCTURES: GI:The liver, biliary system, pancreas and bowel loops are unremarkable. Normal appendix. There is mild fecal retention in the distal colon and superior rectum. :The kidneys, renal collecting systems and bladder are unremarkable. Bilateral ovarian cysts are suspected measuring up to 2 cm. The uterus is unremarkable. Lymphatics:No significant abnormality. Osseous Structures: Mild thoracolumbar spondylosis. No fracture or suspicious bony lesion. Additional Findings: None IMPRESSION: Moderate atherosclerotic disease is identified in both common iliac arteries with stenosis measuring up to 50-60% bilaterally. The aorta, mesenteric arteries and renal arteries are widely patent. Bilateral ovarian cysts are suspected. Mild fecal retention. Signer Name: Neymar Finch Jr, MD Signed: 08/19/2019 9:31 AM Workstation Name: [id number] Critical care attestation.: If time is entered above; I have spent that time in minutes in the direct care of this critically ill patient, excluding procedure time. ED Disposition Clinical Impression: Narcotic dependence, Abdominal pain Disposition: DC-01 TO HOME OR SELFCARE Is pt being admited?: No Does the pt Need Aspirin: No Condition: Good Additional Instructions: Patient's symptoms likely coming from chronic narcotic therapy. Patient most likely has narcotic/opioid-induced abdominal pain, typically described as narcotic bowel syndrome, and probable opioid-induced constipation. Recommend consumption of 4-6 cups of water per day, consumption of plenty of fiber, vegetables and lean protein. Recommend following up with your primary care doctor, Dr. De Jesus, and considering land for narcotic de-escalation therapy. Long-term use of narcotics may cause dependence, tolerance, abdominal pain, and constipation. Do not take metformin medication for the next 2 days, if patient takes this medication. Take the nausea medication as needed, patient may take [id number] Tylenol or ibuprofen as needed for pain, take the Phenergan suppository as needed for intractable nausea and vomiting, and take the MiraLAX medication as directed. Also recommend taking a daily baby aspirin, 81 mg, which may be purchased [id number]. Return to the emergency room right away with new, worsened or different symptoms, or symptoms not present on the initial emergency room evaluation. CT scan abdomen pelvis showed nonspecific plaques in her peripheral arteries, this can be followed up by an outpatient primary care doctor or vascular surgeon within the next month. Local vascular surgery group includes [facility] vascular. Referrals: AR DE JESUS JR, MD [Staff Physician] - 3-5 Days [facility] [Provider Group] - as needed
[2019-08-19 07:11] LABS: Basophils # (Auto) 0.1 K/mm3 (0.0-0.1); Eosinophils % (Auto) 0.1 % (0.0-4.3); Hematocrit 39.8 % (30.3-42.9); Hemoglobin 13.4 gm/dl (10.1-14.3); Lymphocytes # (Auto) 1.6 K/mm3 (1.2-5.4); Lymphocytes % (Auto) 20.6 % (13.4-35.0); Mean Corpuscular HGB Conc 34 % (30-34); Mean Corpuscular Volume 92 fl (79-97); Monocytes # (Auto) 0.4 K/mm3 (0.0-0.8); Monocytes % (Auto) 4.6 % (0.0-7.3); Platelet Count 396 K/mm3 (140-440); Red Blood Count 4.35 M/mm3 (3.65-5.03); Red Cell Distribution Width 12.9 % (13.2-15.2)
[2019-08-19 08:38] LABS: Alanine Aminotransferase 10 units/L (7-56); Albumin 4.7 g/dL (3.9-5); BUN/Creatinine Ratio 15; Blood Urea Nitrogen 9 mg/dL (7-17); Calcium 9.7 mg/dL (8.4-10.2); Hemolysis Index 5
[2019-08-19 08:43] LABS: Bilirubin,Urine NEG (Negative); Blood,Urine NEG (Negative); Color,Urine Yellow (Yellow); Mucus,Urine FEW /HPF; Protein,Urine <15 mg/dL mg/dL (Negative)
[2019-08-19 09:02] LABS: Benzodiazepines Screen,Urine PRESUMPTIVE NEGATIVE; Methadone Screen,Urine PRESUMPTIVE NEGATIVE; Opiate Screen,Urine PRESUMPTIVE NEGATIVE
[2019-08-19 09:16] LABS: Amphetamine Screen,Urine PRESUMPTIVE POSITIVE; Cannabinoid Screen,Urine PRESUMPTIVE POSITIVE; Cocaine Screen,Urine PRESUMPTIVE POSITIVE
--- NOTE | 2019-08-19 10:35 | Cat Scan Report ---
CTA ABDOMEN AND PELVIS HISTORY: Diffuse abdominal pain out of proportion to exam COMPARISON: CT abdomen pelvis without contrast dated 08/22/2018 TECHNIQUE: Noncontrast CT abdomen obtained. Routine postcontrast CT angiography of the abdomen and p anay performed. Multiplanar/MIP/3D reformats were post-processed. All CT scans at this location are performed using CT dose reduction for ALARA by means of automated exposure control. CONTRAST: 100 ml of Omnipaque 350 FINDINGS: CTA ABDOMEN: Abdominal Aorta: Mild partially calcified plaques are identified distally. No stenosis, aneurysm or d issection. Celiac Artery: No significant abnormality. Superior Mesenteric Artery: No significant abnormality. Renal Arteries: Right: No significant abnormality. Left: No significant abnormality. Inferior Mesenteric Artery: No significant abnormality. CTA PELVIS: RIGHT: Common Iliac Artery: Moderate calcified plaques with 50-60% stenosis. Internal Iliac Artery: Mild calcified plaques but no hemodynamically significant stenosis. External Iliac Artery: No significant abnormality. LEFT: Common Iliac Artery: Moderate calcific plaques with 50-60% stenosis distally. Internal Iliac Artery: Mild calcified plaques but no hemodynamically significant stenosis. External Iliac Artery: No significant abnormality. NONTARGET STRUCTURES: GI:The liver, biliary system, pancreas and bowel loops are unremarkable. Normal appendix. There is m ild fecal retention in the distal colon and superior rectum. :The kidneys, renal collecting systems and bladder are unremarkable. Bilateral ovarian cysts are s uspected measuring up to 2 cm. The uterus is unremarkable. Lymphatics:No significant abnormality. Osseous Structures: Mild thoracolumbar spondylosis. No fracture or suspicious bony lesion. Additional Findings: None IMPRESSION: Moderate atherosclerotic disease is identified in both common iliac arteries with stenosis measuring up to 50-60% bilaterally. The aorta, mesenteric arteries and renal arteries are widely patent. Bilateral ovarian cysts are suspected. Mild fecal retention. Signer Name: Neymar Finch Jr, MD Signed: 08/19/2019 10:31 AM Workstation Name: [id number]
[2019-08-19 11:38] VITALS: BP 161/84
== END 2019-08-19 11:38 | disposition home or self-care (01) ==
LOC: ED 06:16
DX: F11.20 Opioid dependence, uncomplicated (principal); R10.9 Unspecified abdominal pain; K57.92 Diverticulitis of intestine, part unspecified, without perforation or abscess without bleeding; F17.200 Nicotine dependence, unspecified, uncomplicated; Z79.899 Other long term (current) drug therapy
CPT/HCPCS: 36415; 74174; 80053; 80307; 81001; 82140; 82550; 83690; 83735; 85025; 93005; 93010; 96361; 96374; 96375; 96376; 99285; J1170; J2405; J7030; Q9967

== ENCOUNTER 2019-08-19 19:16 | Emergency (ER) | payer MEDICAID ==
[2019-08-19 19:27] VITALS: BP 143/90
--- NOTE | 2019-08-19 19:50 | Event Note ---
ED Screening Note Date of service: 08/19/19 Time: 19:49 ED Screening Note: This is a 49 y.o. F. that presents to the ER with diffuse abdominal pain and vomiting. Patient discharged this morning with similar symptoms. No followup This initial assessment/diagnostic orders/clinical plan/treatment(s) is/are subject to change based on patients health status, clinical progression and re- assessment by fellow clinical providers in the ED. Further treatment and workup at subsequent clinical providers discretion. Patient/guardian urged not to elope from the ED as their condition may be serious if not clinically assessed and managed. Initial orders include: Labs
[2019-08-19 20:32] LABS: Basophils # (Auto) 0.1 K/mm3 (0.0-0.1); Basophils % (Auto) 0.7 % (0.0-1.8); Hematocrit 41.3 % (30.3-42.9); Hemoglobin 13.9 gm/dl (10.1-14.3); Lymphocytes # (Auto) 1.5 K/mm3 (1.2-5.4); Lymphocytes % (Auto) 14.7 % (13.4-35.0); Mean Corpuscular HGB Conc 34 % (30-34); Mean Corpuscular Volume 91 fl (79-97); Monocytes # (Auto) 0.9 K/mm3 (0.0-0.8); Monocytes % (Auto) 9.1 % (0.0-7.3); Platelet Count 395 K/mm3 (140-440); Red Blood Count 4.53 M/mm3 (3.65-5.03); Red Cell Distribution Width 12.9 % (13.2-15.2)
[2019-08-19 20:53] LABS: Alanine Aminotransferase 10 units/L (7-56); Albumin 4.8 g/dL (3.9-5); BUN/Creatinine Ratio 18; Blood Urea Nitrogen 9 mg/dL (7-17); Hemolysis Index 19
[2019-08-19] MEDS ORDERED: ONDANSETRON 4 MG/2 ML INJ IV ONE (21:13)
[2019-08-19] MEDS ORDERED: SODIUM CHLORIDE 0.9% 1000 ML 1,000 ML IV ONE (21:13)
[2019-08-19] MEDS ORDERED: HYDROmorphone 1 MG/1 ML INJ IV ONE (21:13)
--- NOTE | 2019-08-19 21:19 | Emergency Department Report ---
ED Abdominal Pain HPI - General Chief Complaint: Abdominal Pain Stated Complaint: ABD PAIN Time Seen by Provider: 08/19/19 21:03 Source: patient Mode of arrival: Ambulatory Limitations: No Limitations - History of Present Illness Initial Comments: 49-year-old female with a past medical history of pancreatitis, chronic pain, and diverticulosis as the hospital complaining of continued abdominal pain. Symptoms started at 1 AM. Patient was seen here earlier and discharged after labs and cta abd/pelvis . Patient takes narcotics chronically. As per [place] prescription monitoring site, on August 01 she filled a 30 day supply of Percocet 10, fentanyl patch 50 g, and Ativan 2 mg. She ran out of her fentanyl patch several days ago because she took more than was prescribed. She states she only has a couple of Percocet tabs remaining. Patient informed of her positive UDS earlier for amphetamines, cocaine, and marijuana. Patient admits to using amphetamines after running out of her fentanyl patch. He states that earlier her bd pain was in the lower abdomen. Now it has moved to her right flank. She continues to have nausea vomiting despite Phenergan suppository and Zofran. She has an appointment for refills of her narcotic medications in 2 days - Related Data Previous Rx's Medication Instructions Recorded Last Taken Type Nicotine [Habitrol] 21 mg TD DAILY #14 day 07/21/17 Unknown Rx Potassium Chloride [K-Dur] 20 meq PO QDAY #30 tablet 07/21/17 Unknown Rx Ketorolac [Toradol] 10 mg PO Q6H PRN #15 tablet 01/03/19 Unknown Rx Ondansetron (Nf) [Zofran TAB] 8 mg PO Q8HR PRN #15 day 08/19/19 Unknown Rx Polyethylene Glycol 3350 [Miralax 17 gm PO Q48HR #30 powd.pack 08/19/19 Unknown Rx 3350] Promethazine [Phenergan SUPPOS] 25 mg ND Q6HR PRN #15 08/19/19 Unknown Rx Allergies Allergy/AdvReac Type Severity Reaction Status Date / Time No Known Allergies Allergy Verified 01/19/15 18:47 ED Review of Systems ROS: Stated complaint: ABD PAIN Other details as noted in HPI Comment: All other systems reviewed and negative ED Past Medical Hx - Past Medical History Previous Medical History?: Yes Additional medical history: Brain Aneurysm 2003,pancreatitis,chronic abd pain, Diverticulosis, Frequent kidney infections chronic back pain - Surgical History Past Surgical History?: No - Social History Smoking Status: Current Every Day Smoker Substance Use Type: Marijuana - Medications Home Medications: Home Medications Medication Instructions Recorded Confirmed Last Taken Type Nicotine [Habitrol] 21 mg TD DAILY #14 day 07/21/17 Unknown Rx Potassium Chloride [K-Dur] 20 meq PO QDAY #30 tablet 07/21/17 Unknown Rx Ketorolac [Toradol] 10 mg PO Q6H PRN #15 tablet 01/03/19 Unknown Rx Ondansetron (Nf) [Zofran TAB] 8 mg PO Q8HR PRN #15 day 08/19/19 Unknown Rx Polyethylene Glycol 3350 [Miralax 17 gm PO Q48HR #30 powd.pack 08/19/19 Unknown Rx 3350] Promethazine [Phenergan SUPPOS] 25 mg ND Q6HR PRN #15 08/19/19 Unknown Rx ED Physical Exam - General Limitations: No Limitations - Other Other exam information: General: No acute distress Head: Atraumatic Eyes: normal appearance ENT: Moist mucous membranes Neck: Normal appearance, no midline tenderness Chest: Clear to auscultation bilaterally CV: Regular rate and rhythm Abdomen: Soft, normal bowel sounds, nontender, nondistended, no rebound or guarding Back: Normal inspection Extremity: Normal inspection infection, full range of motion Neuro: Alert O x 3, no facial asymmetry, speech clear, no gross motor sensory deficit Psych: Appropriate behavior Skin: No rash ED Course Vital Signs 08/19/19 19:25 Temperature 98.6 F Pulse Rate 98 H Respiratory 20 Rate Blood Pressure 143/90 O2 Sat by Pulse 100 Oximetry ED Medical Decision Making - Lab Data Result diagrams: 08/19/19 20:00 08/19/19 20:00 Lab Results 08/19/19 08/19/19 Range/Units 20:00 20:00 WBC 10.2 (4.5-11.0) K/mm3 RBC 4.53 (3.65-5.03) M/mm3 Hgb 13.9 (10.1-14.3) gm/dl Hct 41.3 (30.3-42.9) % MCV 91 (79-97) fl MCH 31 (28-32) pg MCHC 34 (30-34) % RDW 12.9 L (13.2-15.2) % Plt Count 395 (140-440) K/mm3 Lymph % (Auto) 14.7 (13.4-35.0) % [place] % (Auto) 9.1 H (0.0-7.3) % Eos % (Auto) 0.0 (0.0-4.3) % Baso % (Auto) 0.7 (0.0-1.8) % Lymph # 1.5 (1.2-5.4) K/mm3 [place]ner # 0.9 H (0.0-0.8) K/mm3 Eos # 0.0 (0.0-0.4) K/mm3 Baso # 0.1 (0.0-0.1) K/mm3 Seg Neutrophils % 75.5 H (40.0-70.0) % Seg Neutrophils # 7.7 (1.8-7.7) K/mm3 Sodium 140 (137-145) mmol/L Potassium 3.9 (3.6-5.0) mmol/L Chloride 99.5 (98-107) mmol/L Carbon Dioxide 24 (22-30) mmol/L Anion Gap 20 mmol/L BUN 9 (7-17) mg/dL Creatinine 0.5 L (0.7-1.2) mg/dL Estimated GFR > 60 ml/min BUN/Creatinine Ratio 18 % Glucose 102 H (65-100) mg/dL Calcium 10.0 (8.4-10.2) mg/dL Total Bilirubin 0.50 (0.1-1.2) mg/dL AST 16 (5-40) units/L ALT 10 (7-56) units/L Alkaline Phosphatase 83 (35-129) units/L Total Protein 8.0 (6.3-8.2) g/dL Albumin 4.8 (3.9-5) g/dL Albumin/Globulin Ratio 1.5 % Lipase 80 H (13-60) units/L - Medical Decision Making Presents to the hospital with abdominal pain nausea and vomiting. Improved after 1 dose of Dilaudid and patient received 1 L normal saline. No clinical or laboratory findings suggestive of dehydration. I suspect that patient is narcotic dependent and abusing her prescribed medication. She is already out of her fentanyl prior to her scheduled refill. she is also abusing street drugs. She had an unremarkable ED workup including CT abdomen and pelvis earlier today. I suspect that she is having worsening symptoms due to withdrawal from her cardiac medication. No vomiting was witnessed in the ED. Will be discharged to continue her current medication, follow up with her own physician for refills, and to continue nausea medication as needed - Differential Diagnosis narcotic abuse, drug abuse, chronic pain, pancreatitis Critical Care Time: No Critical care attestation.: If time is entered above; I have spent that time in minutes in the direct care of this critically ill patient, excluding procedure time. ED Disposition Clinical Impression: Narcotic dependence, Cocaine abuse, Amphetamine abuse, Abdominal pain Disposition: TO HOME OR SELFCARE Is pt being admited?: No Does the pt Need Aspirin: No Condition: Stable Instructions: Abdominal Pain (ED), Narcotic Abuse (ED), Methamphetamine Abuse (ED), Cocaine Abuse (ED), Chronic Pain (ED) Additional Instructions: Continue your current medication as prescribed. Follow-up with your doctor or doctor/clinic provided. Return if symptoms worsen as indicated by your discharge instructions. Referrals: your, doctor [Other] - 2-3 Days Time of Disposition: 22:35
== END 2019-08-19 23:30 | disposition home or self-care (01) ==
LOC: ED 19:16
DX: R10.9 Unspecified abdominal pain (principal); F11.20 Opioid dependence, uncomplicated; F14.10 Cocaine abuse, uncomplicated; F15.10 Other stimulant abuse, uncomplicated; F17.200 Nicotine dependence, unspecified, uncomplicated; Z98.890 Other specified postprocedural states; Z79.899 Other long term (current) drug therapy
CPT/HCPCS: 36415; 80053; 83690; 85025; 96361; 96374; 96375; 99283; J1170; J2405; J7030

== ENCOUNTER 2022-03-05 05:14 | Emergency (ER) | payer MEDICAID ==
[2022-03-05 05:45] VITALS: BP 150/87
[2022-03-05] MEDS ORDERED: SODIUM CHLORIDE 0.9% 1000 ML 1,000 ML IV ONE ×2 (06:15→09:47)
[2022-03-05] MEDS ORDERED: ONDANSETRON 4 MG/2 ML INJ IV ONE ×2 (06:15→10:02)
--- NOTE | 2022-03-05 06:15 | Emergency Department Report ---
ED Abdominal Pain HPI - General Chief Complaint: Abdominal Pain Stated Complaint: ABD PAIN/VOMITING Time Seen by Provider: 03/05/22 06:11 Source: patient, EMS, old records reviewed Mode of arrival: Stretcher Limitations: No Limitations - History of Present Illness Initial Comments: 51-year-old female with a past medical history of pancreatitis, chronic pain, drug abuse and diverticulosis presents to the hospital complaining of abdominal pain with nausea and vomiting for the past 2 hours. Coffee-ground emesis reported. Pain is 10/10 intensity, constant, worse with palpation, and no alleviating factors reported. No reports of fever, dysuria, diarrhea, or previous abdominal surgeries. As per medical record review, patient presented to the ED multiple times in 2019 for abdominal pain and appeared to be in pain management at that time receiving fentanyl, Percocet, and Xanax. Patient denies current enrollment in pain management and states she is not currently prescribed these medications. She does states she uses heroin and methamphetamines with last use several days ago. Severity scale (0 -10): 10 - Related Data Previous Rx's Medication Instructions Recorded Last Taken Type Nicotine [Habitrol] 21 mg TD DAILY #14 day 07/21/17 Unknown Rx Potassium Chloride [K-Dur] 20 meq PO QDAY #30 tablet 07/21/17 Unknown Rx Ketorolac [Toradol] 10 mg PO Q6H PRN #15 tablet 01/03/19 Unknown Rx Ondansetron (Nf) [Zofran TAB] 8 mg PO Q8HR PRN #15 day 08/19/19 Unknown Rx Promethazine [Phenergan SUPPOS] 25 mg MT Q6HR PRN #15 08/19/19 Unknown Rx polyethylene glycoL 3350 [Miralax 17 gm PO Q48HR #30 powd.pack 08/19/19 Unknown Rx 3350] Allergies Allergy/AdvReac Type Severity Reaction Status Date / Time No Known Allergies Allergy Verified 01/19/15 18:47 ED Review of Systems ROS: Stated complaint: ABD PAIN/VOMITING Other details as noted in HPI ED Past Medical Hx - Past Medical History Previous Medical History?: Yes Additional medical history: Brain Aneurysm 2004,pancreatitis,chronic abd pain, Diverticulosis, Frequent kidney infections chronic back pain - Surgical History Past Surgical History?: No - Social History Smoking Status: Current Every Day Smoker Substance Use Type: Alcohol - Medications Home Medications: Home Medications Medication Instructions Recorded Confirmed Last Taken Type Nicotine [Habitrol] 21 mg TD DAILY #14 day 07/21/17 Unknown Rx Potassium Chloride [K-Dur] 20 meq PO QDAY #30 tablet 07/21/17 Unknown Rx Ketorolac [Toradol] 10 mg PO Q6H PRN #15 tablet 01/03/19 Unknown Rx Ondansetron (Nf) [Zofran TAB] 8 mg PO Q8HR PRN #15 day 08/19/19 Unknown Rx Promethazine [Phenergan SUPPOS] 25 mg MT Q6HR PRN #15 08/19/19 Unknown Rx polyethylene glycoL 3350 [Miralax 17 gm PO Q48HR #30 powd.pack 08/19/19 Unknown Rx 3350] ED Physical Exam - General Limitations: No Limitations - Other Other exam information: General: Distressed, moaning secondary to pain Head: Atraumatic Eyes: normal appearance ENT: Poor dentition, coffee-ground emesis when sheets Neck: Normal appearance, no midline tenderness Chest: Clear to auscultation bilaterally CV: Regular rate and rhythm Abdomen: Soft, normal bowel sounds, generalized tenderness without rebound or guard Back: Normal inspection Extremity: Normal inspection, full range of motion Neuro: Alert O x 3, no facial asymmetry, speech clear, no gross motor sensory deficit Psych: Appropriate behavior Skin: No rash ED Course Vital Signs 03/05/22 03/05/22 05:44 09:51 Temperature 98.5 F Pulse Rate 86 Respiratory 20 Rate Blood Pressure 150/87 [Right] O2 Sat by Pulse 96 100 Oximetry - Reevaluation(s) Reevaluation #1: 03/05/22 11:12 Was informed by nurse that patient walked out from the department. IV was removed. She complained that we were not doing anything to help her ED Medical Decision Making - Lab Data Result diagrams: 03/05/22 06:11 03/05/22 06:11 Lab Results 03/05/22 03/05/22 03/05/22 Range/Units 06:11 06:11 06:32 WBC 11.1 H (4.5-11.0) K/mm3 RBC 4.35 (3.65-5.03) M/mm3 Hgb 13.1 (10.1-14.3) gm/dl Hct 39.5 (30.3-42.9) % MCV 91 (79-97) fl MCH 30 (28-32) pg MCHC 33 (30-34) % RDW 12.0 L (13.2-15.2) % Plt Count 413 (140-440) K/mm3 Add Manual Diff Complete Total Counted 100 Seg Neutrophils % [employer] Seg Neuts % (Manual) 89.0 H (40.0-70.0) % Band Neutrophils % 0 % Lymphocytes % (Manual) 9.0 L (13.4-35.0) % Reactive Lymphs % (Man) 0 % Monocytes % (Manual) 2.0 (0.0-7.3) % Eosinophils % (Manual) 0 (0.0-4.3) % Basophils % (Manual) 0 (0.0-1.8) % Metamyelocytes % 0 % Myelocytes % 0 % Promyelocytes % 0 % Blast Cells % 0 % Nucleated RBC % Not Reportable Seg Neutrophils # Man 9.9 H (1.8-7.7) K/mm3 Band Neutrophils # 0.0 K/mm3 Lymphocytes # (Manual) 1.0 L (1.2-5.4) K/mm3 Abs React Lymphs (Man) 0.0 K/mm3 Monocytes # (Manual) 0.2 (0.0-0.8) K/mm3 Eosinophils # (Manual) 0.0 (0.0-0.4) K/mm3 Basophils # (Manual) 0.0 (0.0-0.1) K/mm3 Metamyelocytes # 0.0 K/mm3 Myelocytes # 0.0 K/mm3 Promyelocytes # 0.0 K/mm3 Blast Cells # 0.0 K/mm3 WBC Morphology Not Reportable Hypersegmented Neuts Not Reportable Hyposegmented Neuts Not Reportable Hypogranular Neuts Not Reportable Smudge Cells Not Reportable Toxic Granulation Not Reportable Toxic Vacuolation Not Reportable Dohle Bodies Not Reportable Pelger-Huet Anomaly Not Reportable Reggie Rods Not Reportable Platelet Estimate Consistent w auto Clumped Platelets Not Reportable Plt Clumps, EDTA Not Reportable Large Platelets Not Reportable Giant Platelets Not Reportable Platelet Satelliting Not Reportable Plt Morphology Comment Not Reportable RBC Morphology Not Reportable Dimorphic RBCs Not Reportable Polychromasia Not Reportable Hypochromasia Not Reportable Poikilocytosis Not Reportable Anisocytosis 1+ Microcytosis Not Reportable Macrocytosis Not Reportable Spherocytes Not Reportable Pappenheimer Bodies Not Reportable Sickle Cells Not Reportable Target Cells Not Reportable Tear Drop Cells Not Reportable Ovalocytes Not Reportable Helmet Cells Not Reportable Foote-Plain Bodies Not Reportable [place] Rings Not Reportable Revere Cells Not Reportable Bite Cells Not Reportable Crenated Cell Not Reportable Elliptocytes Not Reportable Acanthocytes (Spur) Not Reportable Rouleaux Not Reportable Hemoglobin C Crystals Not Reportable Schistocytes Not Reportable Malaria parasites Not Reportable Cristóbal Bodies Not Reportable Hem Pathologist Commnt No Sodium 141 (137-145) mmol/L Potassium 3.5 L (3.6-5.0) mmol/L Chloride 101.5 (98-107) mmol/L Carbon Dioxide 26 (22-30) mmol/L Anion Gap 17 mmol/L BUN 14 (7-17) mg/dL Creatinine 0.6 (0.6-1.2) mg/dL Estimated GFR > 60 ml/min BUN/Creatinine Ratio 23 % Glucose 134 H (65-100) mg/dL Calcium 9.8 (8.4-10.2) mg/dL Magnesium 1.90 (1.7-2.3) mg/dL Total Bilirubin 0.40 (0.1-1.2) mg/dL AST 15 (5-40) units/L ALT 10 (7-56) units/L Alkaline Phosphatase 98 (35-129) units/L Total Protein 6.8 (6.3-8.2) g/dL Albumin 4.3 (3.9-5) g/dL Albumin/Globulin Ratio 1.7 % Lipase 15 (13-60) units/L HCG, Quant (0-4) mIU/mL Urine Color (Yellow) Urine Turbidity (Clear) Urine pH (5.0-7.0) Ur Specific [place] (1.003-1.030) Urine Protein (Negative) mg/dL Urine Glucose (UA) (Negative) mg/dL Urine Ketones (Negative) mg/dL Urine Blood (Negative) Urine Nitrite (Negative) Urine Bilirubin (Negative) Urine Urobilinogen (<2.0) mg/dL Ur Leukocyte Esterase (Negative) Urine WBC (Auto) (0.0-6.0) /HPF Urine RBC (Auto) (0.0-6.0) /HPF 03/05/22 03/05/22 Range/Units 06:37 10:20 WBC (4.5-11.0) K/mm3 RBC (3.65-5.03) M/mm3 Hgb (10.1-14.3) gm/dl Hct (30.3-42.9) % MCV (79-97) fl MCH (28-32) pg MCHC (30-34) % RDW (13.2-15.2) % Plt Count (140-440) K/mm3 Add Manual Diff Total Counted Seg Neutrophils % Seg Neuts % (Manual) (40.0-70.0) % Band Neutrophils % % Lymphocytes % (Manual) (13.4-35.0) % Reactive Lymphs % (Man) % Monocytes % (Manual) (0.0-7.3) % Eosinophils % (Manual) (0.0-4.3) % Basophils % (Manual) (0.0-1.8) % Metamyelocytes % % Myelocytes % % Promyelocytes % % Blast Cells % % Nucleated RBC % Seg Neutrophils # Man (1.8-7.7) K/mm3 Band Neutrophils # K/mm3 Lymphocytes # (Manual) (1.2-5.4) K/mm3 Abs React Lymphs (Man) K/mm3 Monocytes # (Manual) (0.0-0.8) K/mm3 Eosinophils # (Manual) (0.0-0.4) K/mm3 Basophils # (Manual) (0.0-0.1) K/mm3 Metamyelocytes # K/mm3 Myelocytes # K/mm3 Promyelocytes # K/mm3 Blast Cells # K/mm3 WBC Morphology Hypersegmented Neuts Hyposegmented Neuts Hypogranular Neuts Smudge Cells Toxic Granulation Toxic Vacuolation Dohle Bodies Pelger-Huet Anomaly Reggie Rods Platelet Estimate Clumped Platelets Plt Clumps, EDTA Large Platelets Giant Platelets Platelet Satelliting Plt Morphology Comment RBC Morphology Dimorphic RBCs Polychromasia Hypochromasia Poikilocytosis Anisocytosis Microcytosis Macrocytosis Spherocytes Pappenheimer Bodies Sickle Cells Target Cells Tear Drop Cells Ovalocytes Helmet Cells Foote-Plain Bodies [place] Rings [place] Cells Bite Cells Crenated Cell Elliptocytes Acanthocytes (Spur) Rouleaux Hemoglobin C Crystals Schistocytes Malaria parasites Cristóbal Bodies Hem Pathologist Commnt Sodium (137-145) mmol/L Potassium (3.6-5.0) mmol/L Chloride (98-107) mmol/L Carbon Dioxide (22-30) mmol/L Anion Gap mmol/L BUN (7-17) mg/dL Creatinine (0.6-1.2) mg/dL Estimated GFR ml/min BUN/Creatinine Ratio % Glucose (65-100) mg/dL Calcium (8.4-10.2) mg/dL Magnesium (1.7-2.3) mg/dL Total Bilirubin (0.1-1.2) mg/dL AST (5-40) units/L ALT (7-56) units/L Alkaline Phosphatase (35-129) units/L Total Protein (6.3-8.2) g/dL Albumin (3.9-5) g/dL Albumin/Globulin Ratio % Lipase (13-60) units/L HCG, Quant < 2.0 (0-4) mIU/mL Urine Color Yellow (Yellow) Urine Turbidity Clear (Clear) Urine pH 8.5 H (5.0-7.0) Ur Specific [place] 1.005 (1.003-1.030) Urine Protein 30 mg/dl (Negative) mg/dL Urine Glucose (UA) Negative (Negative) mg/dL Urine Ketones Negative (Negative) mg/dL Urine Blood Negative (Negative) Urine Nitrite Negative (Negative) Urine Bilirubin Negative (Negative) Urine Urobilinogen 0.0 (<2.0) mg/dL Ur Leukocyte Esterase Negative (Negative) Urine WBC (Auto) < 1.0 (0.0-6.0) /HPF Urine RBC (Auto) < 1.0 (0.0-6.0) /HPF - Radiology Data Radiology results: report reviewed CT ABDOMEN AND PELVIS WITH CONTRAST INDICATION / CLINICAL INFORMATION: Abd pain with nausea and vomiting, coffee ground emesis. TECHNIQUE: Axial CT images were obtained through the abdomen and pelvis after 100 mL Omnipaque [address] scans at this location are performed using CT dose red uction for ALARA by means of automated exposure control. COMPARISON: CT dated 08/19/2019 and 08/22/2018 FINDINGS: LOWER CHEST: No significant abnormality. LIVER: No significant abnormality. GALLBLADDER: No significant abnormality. BILE DUCTS: No significant abnormality. PANCREAS: No significant abnormality. SPLEEN: No significant abnormality. ADRENALS: Benign right adrenal adenoma is unchanged. RIGHT KIDNEY / URETER: No significant abnormality. LEFT KIDNEY / URETER: No significant abnormality. STOMACH / SMALL BOWEL: No significant abnormality. COLON: No significant abnormality. APPENDIX: No significant abnormality. PERITONEUM: Trace free fluid in the pelvis. No free air. No fluid collection. LYMPH NODES: No significant adenopathy. AORTA / ARTERIES: Moderate atherosclerotic calcification without acute abnormality. IVC / VEINS: No significant abnormality. URINARY BLADDER: No significant abnormality. REPRODUCTIVE ORGANS: No significant abnormality. ADDITIONAL FINDINGS: None. SKELETAL SYSTEM: No significant abnormality. IMPRESSION: 1. No acute process in the abdomen or pelvis. 2. Stable benign right adrenal adenoma. - Medical Decision Making 51-year-old female presenting with abdominal pain who has essentially unremarkable ED work-up. Patient has a history of chronic pain and appears to have been treated by pain specialist in the past. She is not currently under pain management and is instead using heroin and methamphetamine. Patient was treated with Dilaudid, antiemetics, Pepcid, and IV fluids. Patient eloped from the department frustrated stating that we were not doing anything for her during her ED stay. As per [place] prescription monitoring site patient last filled the following controlled medications 11/30/2020 06/11/2020 1 Alprazolam 1 Mg Tablet 90.00 30 Ch Rachel [id number] [facility] ([id number]) 1 11/01/2020 06/11/2020 1 Alprazolam 1 Mg Tablet 90.00 30 Ch Rachel [id number] [facility] ([id number]) 0 10/04/2020 04/16/2020 1 Alprazolam 1 Mg Tablet 90.00 30 Ch Rahcel [id number] [facility] ([id number]) 2 09/06/2020 04/16/2020 1 Alprazolam 1 Mg Tablet 90.00 30 Ch Rachel [id number] [facility] ([id number]) 1 08/09/2020 04/16/2020 1 Alprazolam 1 Mg Tablet 90.00 30 Ch Rachel [id number] [facility] ([id number]) 0 07/19/2020 06/14/2020 1 Fentanyl 50 Mcg/hr Patch 10.00 30 Ch Rachel [id number] [facility] ([id number]) 0 07/12/2020 06/11/2020 1 Oxycodone-Acetaminophen 10-325 150.00 30 Ch Rachel [id number] [facility] ([id number]) 0 06/29/2020 02/24/2020 2 Alprazolam 1 Mg Tablet 90.00 30 Rachel [id number] [facility] ([id number]) 2 06/22/2020 06/11/2020 1 Fentanyl 50 Mcg/hr Patch 10.00 30 Rachel [id number] [facility] ([id number]) 0 - Differential Diagnosis Narcotic withdrawal, chronic pain, gastritis, peptic ulcer disease, pancrea Critical Care Time: No Critical care attestation.: If time is entered above; I have spent that time in minutes in the direct care of this critically ill patient, excluding procedure time. ED Disposition Clinical Impression: Abdominal pain, History of chronic pain, Heroin abuse, Methamphetamine abuse Disposition: 07 LEFT AWOL/ELOPED Is pt being admited?: No Condition: Stable Instructions: Abdominal Pain (ED) Time of Disposition: 11:19
[2022-03-05 06:25] LABS: Hematocrit 39.5 % (30.3-42.9); Hemoglobin 13.1 gm/dl (10.1-14.3); Mean Corpuscular HGB Conc 33 % (30-34); Mean Corpuscular Volume 91 fl (79-97); Platelet Count 413 K/mm3 (140-440); Red Blood Count 4.35 M/mm3 (3.65-5.03)
[2022-03-05] MEDS ORDERED: HYDROmorphone 1 MG/1 ML INJ IV ONE ×2 (06:33→10:02)
[2022-03-05 06:47] LABS: Alanine Aminotransferase 10 units/L (7-56); Albumin 4.3 g/dL (3.9-5); Blood Urea Nitrogen 14 mg/dL (7-17); Calcium 9.8 mg/dL (8.4-10.2); Hemolysis Index 1
[2022-03-05 06:50] LABS: BUN/Creatinine Ratio 23
[2022-03-05] MEDS ORDERED: FAMOTIDINE 20 MG/2 ML INJ IV ONE (07:07)
[2022-03-05 07:47] LABS: Anisocytosis 1+; Basophils % (Manual) 0 % (0.0-1.8); Eosinophils % (Manual) 0 % (0.0-4.3); Total Cells Counted 100
[2022-03-05 07:48] LABS: Platelet Estimate Consistent w Auto
[2022-03-05] MEDS ORDERED: diphenhydrAMINE 50 MG/ML VIAL IV ONE (08:13)
[2022-03-05] MEDS ORDERED: METOCLOPRAMIDE 10 MG/2 ML INJ IV ONE (08:14)
--- NOTE | 2022-03-05 09:18 | Cat Scan Report ---
CT ABDOMEN AND PELVIS WITH CONTRAST INDICATION / CLINICAL INFORMATION: Abd pain with nausea and vomiting, coffee ground emesis. TECHNIQUE: Axial CT images were obtained through the abdomen and pelvis after 100 mL Omnipaque [address] scans at this location are performed using CT dose reduction for ALARA by means of automated exposure control. COMPARISON: CT dated 08/19/2019 and 08/22/2018 FINDINGS: LOWER CHEST: No significant abnormality. LIVER: No significant abnormality. GALLBLADDER: No significant abnormality. BILE DUCTS: No significant abnormality. PANCREAS: No significant abnormality. SPLEEN: No significant abnormality. ADRENALS: Benign right adrenal adenoma is unchanged. RIGHT KIDNEY / URETER: No significant abnormality. LEFT KIDNEY / URETER: No significant abnormality. STOMACH / SMALL BOWEL: No significant abnormality. COLON: No significant abnormality. APPENDIX: No significant abnormality. PERITONEUM: Trace free fluid in the pelvis. No free air. No fluid collection. LYMPH NODES: No significant adenopathy. AORTA / ARTERIES: Moderate atherosclerotic calcification without acute abnormality. IVC / VEINS: No significant abnormality. URINARY BLADDER: No significant abnormality. REPRODUCTIVE ORGANS: No significant abnormality. ADDITIONAL FINDINGS: None. SKELETAL SYSTEM: No significant abnormality. IMPRESSION: 1. No acute process in the abdomen or pelvis. 2. Stable benign right adrenal adenoma. Signer Name: Zulay Acuña MD Signed: 03/05/2022 9:14 AM Workstation Name: [place] [id number]
[2022-03-05 10:59] LABS: Color,Urine Yellow (Yellow)
[2022-03-05 11:00] LABS: Bilirubin,Urine Negative (Negative); Blood,Urine Negative (Negative); PH,Urine 8.5 (5.0-7.0)
[2022-03-05 11:16] LABS: RBC,Urine < 1.0 /HPF (0.0-6.0); WBC,Urine < 1.0 /HPF (0.0-6.0)
[2022-03-05 11:25] LABS: Cocaine Screen,Urine Negative; Methadone Screen,Urine Negative
[2022-03-05 11:42] LABS: Amphetamine Screen,Urine Positive; Benzodiazepines Screen,Urine Positive; Cannabinoid Screen,Urine Positive; Opiate Screen,Urine Positive
== END 2022-03-05 11:15 | disposition left against medical advice (07) ==
LOC: ED 05:14
DX: G89.29 Other chronic pain (principal); R10.9 Unspecified abdominal pain; F11.10 Opioid abuse, uncomplicated; F15.10 Other stimulant abuse, uncomplicated; M54.9 Dorsalgia, unspecified; I67.1 Cerebral aneurysm, nonruptured; K57.90 Diverticulosis of intestine, part unspecified, without perforation or abscess without bleeding; F17.290 Nicotine dependence, other tobacco product, uncomplicated
CPT/HCPCS: 36415; 74177; 80053; 80307; 81001; 83690; 83735; 84702; 85007; 85025; 96361; 96374; 96375; 99284; J1170; J1200; J2405; J2765; J3490; J7030; Q9967